=== PATIENT | female | born 1955 | race African-American/Black ===

== ENCOUNTER 2017-01-03 13:23 | Emergency (ER) | payer MEDICAID ==
[~2017-01-03] VITALS: Ht 144.8 cm; Wt 55.3 kg
[2017-01-03 13:51] LABS: Basophils # (auto) 0.1 uL; Basophils % (auto) 0.8 % (0.0-2.0); CONDITION Y; Eosinophils # (auto) 0.3 uL; Eosinophils % (auto) 5.1 % (0.0-7.0); Hematocrit 43.3 % (36.0-46.0); Hemoglobin 14.4 g/dL (12.2-16.2); Lymphocytes # (auto) 2.4 uL; Lymphocytes % (auto) 37.3 % (10.0-50.0); Mean Corpuscular Hemoglobin 29.9 pg (28.0-32.0); Mean Corpuscular Hgb Conc. 33.3 g/dL (32.0-36.0); Mean Corpuscular Volume 89.9 fL (80.0-100.0); Mean Platelet Volume 7.3 fL (7.4-10.4); Monocytes # (auto) 0.5 uL; Neutrophils # (auto) 3.1 uL; Neutrophils % (auto) 48.8 % (37.0-80.0); Platelet Count (auto) 320 10^3/uL (140-450); Red Cell Distribution Width 14.1 % (11.6-16.0); White Blood Cell 6.4 10^3/uL (4.4-10.8)
[2017-01-03 13:56] LABS: Urine Bilirubin Negative (Negative); Urine Blood Negative /uL (Negative); Urine Color Yellow (Yellow); Urine Mucus FEW (None Seen); Urine Nitrite Negative (Negative); Urine RBC 6 /hpf (0 - 4); Urine Squamous Epithelial Cell MOD /hpf (<5); Urine Urobilinogen Normal (Negative); Urine pH 5.5 (5.0-8.0)
[2017-01-03 13:59] LABS: Urine Glucose 4+ mg/dL (Normal); Urine Ketone 1+ (Negative)
[2017-01-03 14:19] LABS: Albumin 4.1 g/dL (3.4-5.0); Alkaline Phosphatase 79 U/L (45-117); Amylase 64 U/L (25-115); Anion Gap 13 (5-15); Aspartate Aminotransferase 21 U/L (15-37); BUN/Creatinine Ratio 16.8; Bilirubin, Total 0.3 mg/dL (0.2-1.0); Blood Urea Nitrogen 16 mg/dL (7-18); Calcium 9.5 mg/dL (8.5-10.1); Carbon Dioxide 25 mmol/L (21-32); Chloride 97 mmol/L (98-107); GFR African American 77 mL/min; GFR Non-African American 64 mL/min; Glucose 166 mg/dL (74-106); Potassium 3.9 mmol/L (3.5-5.1); Sodium 135 mmol/L (136-145); Total Protein 8.5 g/dL (6.4-8.2)
[2017-01-03] MEDS ORDERED: PANTOPRAZOLE SODIUM 40 MG/10 ML VIAL IV STA (16:20)
[2017-01-03] MEDS ORDERED: SODIUM CHLORIDE 0.9% 500 ML IVB ONE (16:20)
[2017-01-03] MEDS ORDERED: ONDANSETRON HCL 4 MG/2 ML VIAL IV ONE (16:30)
[2017-01-03] MEDS ORDERED: MORPHINE SULF INJ 2 MG/ML SYRINGE 1ML IV PRN (16:30)
[2017-01-03 19:26] VITALS: BP 158/85
== END 2017-01-03 19:42 | disposition left against medical advice (07) ==
LOC: ER 13:27
DX: N39.0 Urinary tract infection, site not specified (principal); E11.9 Type 2 diabetes mellitus without complications; I10 Essential (primary) hypertension; Z88.0 Allergy status to penicillin; Z88.6 Allergy status to analgesic agent; Z98.51 Tubal ligation status
CPT/HCPCS: 36415; 76705; 80053; 81001; 82150; 83690; 84484; 85025; 93005; 94761; 96361; 96374; 96375; 99285; C9113; J2270; J2405; J7040

== ENCOUNTER 2017-01-16 17:03 | Emergency (ER) | payer MEDICAID ==
[~2017-01-16] VITALS: Ht 144.8 cm; Wt 54.9 kg
[2017-01-16 18:53] LABS: Basophils # (auto) 0 uL; Basophils % (auto) 0.2 % (0.0-2.0); CONDITION Y; Eosinophils # (auto) 0.4 uL; Eosinophils % (auto) 4.9 % (0.0-7.0); Hematocrit 41.8 % (36.0-46.0); Hemoglobin 13.7 g/dL (12.2-16.2); Lymphocytes # (auto) 2.7 uL; Lymphocytes % (auto) 32.1 % (10.0-50.0); Mean Corpuscular Hemoglobin 29.7 pg (28.0-32.0); Mean Corpuscular Hgb Conc. 32.7 g/dL (32.0-36.0); Mean Corpuscular Volume 90.8 fL (80.0-100.0); Mean Platelet Volume 7.6 fL (7.4-10.4); Monocytes # (auto) 0.6 uL; Monocytes % (auto) 7.3 % (0.0-12.0); Neutrophils # (auto) 4.7 uL; Neutrophils % (auto) 55.5 % (37.0-80.0); Platelet Count (auto) 351 10^3/uL (140-450); Red Cell Distribution Width 13.6 % (11.6-16.0); White Blood Cell 8.5 10^3/uL (4.4-10.8)
[2017-01-16 18:56] LABS: Urine Bilirubin Negative (Negative); Urine Blood Negative /uL (Negative); Urine Color Yellow (Yellow); Urine Ketone Negative (Negative); Urine Mucus FEW (None Seen); Urine Nitrite Negative (Negative); Urine RBC <1 /hpf (0 - 4); Urine Squamous Epithelial Cell FEW /hpf (<5); Urine Urobilinogen Normal (Negative); Urine pH 5.5 (5.0-8.0)
[2017-01-16 18:57] LABS: Urine Glucose 4+ mg/dL (Normal)
[2017-01-16 19:41] LABS: Albumin 3.9 g/dL (3.4-5.0); Alkaline Phosphatase 81 U/L (45-117); Anion Gap 13 (5-15); Aspartate Aminotransferase 11 U/L (15-37); BUN/Creatinine Ratio 20.8; Bilirubin, Total 0.3 mg/dL (0.2-1.0); Blood Urea Nitrogen 20 mg/dL (7-18); Calcium 10.1 mg/dL (8.5-10.1); Carbon Dioxide 26 mmol/L (21-32); Chloride 106 mmol/L (98-107); GFR African American 76 mL/min; GFR Non-African American 63 mL/min; Glucose 83 mg/dL (74-106); Potassium 4.8 mmol/L (3.5-5.1); Sodium 145 mmol/L (136-145)
[2017-01-17] MEDS ORDERED: SODIUM CHLORIDE 0.9% 1,000 ML IV ONE (03:15)
[2017-01-17] MEDS ORDERED: ONDANSETRON HCL 4 MG/2 ML VIAL IV ONE (03:15)
[2017-01-17] MEDS ORDERED: HYDROmorphone HCL 2 MG/ML VL IV ONE (03:15)
[2017-01-17 06:56] VITALS: BP 137/80
== END 2017-01-17 06:59 | disposition home or self-care (01) ==
LOC: ER 17:10
DX: K57.90 Diverticulosis of intestine, part unspecified, without perforation or abscess without bleeding (principal); K59.00 Constipation, unspecified; E11.9 Type 2 diabetes mellitus without complications; E78.5 Hyperlipidemia, unspecified; I10 Essential (primary) hypertension; Z98.51 Tubal ligation status; Z88.0 Allergy status to penicillin; Z88.6 Allergy status to analgesic agent
CPT/HCPCS: 36415; 74176; 76705; 80053; 81001; 84484; 85025; 93005; 96361; 96374; 96375; 99285; J1170; J2405; J7030

== ENCOUNTER 2022-07-31 16:01 | Emergency (ER) | payer MEDICARE, MEDICAID ==
[~2022-07-31] VITALS: Ht 149.9 cm; Wt 62.8 kg
[2022-07-31 17:00] LABS: Basophils # (auto) 0 10 ^3/uL (0-0.2); Basophils % (auto) 0.5 % (0.0-2.0); Eosinophils # (auto) 0.3 10 ^3/uL (0-0.8); Eosinophils % (auto) 5.5 % (0.0-7.0); Hematocrit 37.9 % (36.0-46.0); Hemoglobin 12.4 g/dL (12.2-16.2); Lymphocytes # (auto) 1.9 10 ^3/uL (0.4-5.4); Lymphocytes % (auto) 35.3 % (10.0-50.0); Mean Corpuscular Hemoglobin 29.3 pg (28.0-32.0); Mean Corpuscular Hgb Conc. 32.6 g/dL (32.0-36.0); Monocytes # (auto) 0.5 10 ^3/uL (0-1.3); Monocytes % (auto) 9.7 % (0.0-12.0); Neutrophils # (auto) 2.6 10 ^3/uL (1.6-8.6); Nucleated Red Blood Cells % 0.2 %; Red Blood Cells 4.22 10^6/uL (4.0-5.20); Red Cell Distribution Width 13.9 % (11.8-14.3); White Blood Cell 5.3 10^3/uL (4.4-10.8)
[2022-07-31 17:24] LABS: Albumin 3.6 g/dL (3.4-5.0); BUN/Creatinine Ratio 23.9; Bilirubin, Total 0.4 mg/dL (0.2-1.0); Calcium 9.2 mg/dL (8.5-10.1); Total Protein 7.2 g/dL (6.4-8.2)
[2022-07-31 19:07] VITALS: BP 112/63
== END 2022-07-31 19:09 | disposition home or self-care (01) ==
LOC: ER 16:01
DX: E11.65 Type 2 diabetes mellitus with hyperglycemia (principal); R63.1 Polydipsia; R35.89 Other polyuria; E78.5 Hyperlipidemia, unspecified; I10 Essential (primary) hypertension; Z88.0 Allergy status to penicillin; Z88.6 Allergy status to analgesic agent
CPT/HCPCS: 36415; 80053; 82962; 85025; 93005

== ENCOUNTER 2025-04-30 21:44 | Inpatient (IN) | payer MEDICAID, MEDICARE, OTHER ==
[~2025-04-30] VITALS: Ht 144.8 cm; Wt 57.7 kg
[2025-04-30] MEDS: SODIUM CHLORIDE 0.9% 1,000 ML IV ONE (00:30)
--- NOTE | 2025-04-30 22:20 | ED.PDOC ---
History of present illness HPI Comments HPI: 69-year-old female who came to ER via EMS for hyperglycemia. She does have history of hypertension and diabetes, with poor compliance to medications. The past 2 days, she was noted to be restless, shaking uncontrollably, jittery, and noted that her blood sugar levels were high. Upon arrival of EMS, blood sugar was 282, in his saturating of 90% on room air. Patient was placed a 2 L nasal cannula and transferred to the ER Past Medical History: Hypertension, diabetes Past Surgical History: Denies Social History: Denies Medications: Allergies: ANDRES: HPI: Poor Historian. Past Medical History: Past Surgical History: REVIEW OF SYSTEMS: CONSTITUTIONAL: Denies acute: fever, diaphoresis, chills, generalized weakness. HEAD: Denies acute: headache, photophobia Eyes: Denies acute: Double vision, vision loss, eye pain, eye discharge. EARS: Denies acute: tinnitus, hearing loss, ear discharge, ear pain, THROAT: Denies acute: sore throat, swelling, difficulty swallowing , pain with swallowing, change in voice. NECK: Denies acute: neck pain, neck swelling, stiff neck. HEART: Denies acute : chest pain, palpitations, LUNGS: Denies acute: SOB, wheezing, cough, hemoptysis ABDOMEN: Denies acute: abdominal pain, Nausea, Vomiting, diarrhea, melena , hematemesis, hematochezia SKIN: Denies acute: rash, redness, lesions, itchiness. EXTREMITIES: Denies acute: calf pain, numbness, tingling, weakness, denies pain in extremity. Denies acute: Low back pain. Neuro: Denies acute: focal neurological deficit, motor or sensory focal neurological deficit, tremors, seizure like activity, confusion, dizziness, change in mental status, loss of bowel or bladder function, cauda equina like symptoms. : Denies acute: dysuria, hematuria, flank pain, increase in urinary frequency. PSYCH: Denies acute: hallucination, suicidal ideation, homicidal ideation. FEMALE: Denies acute: abnormal vaginal bleeding, foul odor, unusual discharge. PHYSICAL EXAM: General: ----no----acute distress, awake and alert. Head: normocephalic, atraumatic. No raccoon's eyes, no valdez sign. Neck: supple, trachea is midline, no swelling. Throat: Normal phonation. Eyes:, no erythema, no purulent discharge, no proptosis, no icterus. Heart: regular rate, regular rhythm, no significant murmur appreciated. Lungs: no apparent respiratory distress, Able to speak in full sentences. No wheezing, no rhonchi, no crackles. No stridors Clear to auscultation bilaterally. Abdomen: non tender to palpation, non distended, soft, no guarding, no rebound, + bowel sounds. Neuro: Awake, Alert, oriented to name, self, situation, follows commands GCS=15. Speech is normal. Skin: no petechia, no purpura, no cyanosis, non-pale, not jaundice. Lower extremities: --no - Pitting edema no deformity, no focal swelling, no calf TTP. Makes eye contact. moves all four extremities. Face: no apparent facial droop. ED COURSE: DISCLAIMER: This medical document was created using an electronic medical record system with voice recognition software and computerized dictation system. Although this document has been carefully reviewed, there might still be some phonetic and typographical errors. Occasional wrong-word or "sound-alike" substitutions may have occurred due to the inherent limitations of voice recognition software. These areas are purely typographical due to imperfections of the software programs and do not reflect any compromise in the patient's medical care. Please read the chart carefully and recognize, using context, where these substitutions have occurred. Chief Complaint: Hyperglycemia Time Seen by MD: 22:19 Primary Care Provider: UNKNOWN History of present illness: Nurses Notes, Allergies Allergies: Coded Allergies: Gabapentin (Verified Allergy, Unknown, 05/02/25) pt's son states that pt couldn't take it, pt had reaction before Penicillins (Verified Allergy, Unknown, 01/03/17) Ibuprofen (Verified Adverse Reaction, Intermediate, VOMITING, 01/03/17) Home Meds Active Scripts Losartan Potassium (Losartan Potassium) 25 Mg Tab, 1 TAB PO DAILY, #30 TAB 5 Refills Prov:CHAS CHERY MD 05/02/25 Nitrofurantoin Monohydrate Mac (Macrobid) 100 Mg Cap, 100 MG PO BID for 5 Days, #10 CAP Prov:CHAS CHERY MD 05/02/25 Information Source: Patient Mode of Arrival: EMS Past Medical History PAST MEDICAL HISTORY: DM, High Lipids, HTN Surgical History: Tubal Ligation Social History Smoker: Non-Smoker Alcohol: Occasionally Drugs: Denies Drug Use Lives In: Home Was a procedure done? Was a procedure done?: No Differential Diagnosis (DM) Differential Diagnosis: Dehydration, Diabetic Coma, DKA, Electrolyte Abnormality, Hyperglycemia, Hyperosmolar State, Hypoglycemia, UTI X-Ray, Labs, Meds, VS Vital Signs Date Time Temp Pulse Resp B/P (MAP) Pulse Ox O2 Delivery O2 Flow Rate FiO2 05/01/25 03:06 97 05/01/25 03:05 89 05/01/25 02:07 88 18 115/63 (80) 94 04/30/25 22:20 Nasal Cannula* 2 28 04/30/25 22:20 98.2 107 18 101/66 (78) 92 98.2 04/30/25 21:47 98.9 110 16 154/81 97 98.9 Lab Test 04/30/25 23:29 04/30/25 23:25 04/30/25 22:16 Range/Units Troponin I High Sensitivity 7 5 </=34 ng/L Urine Color Light-orange Yellow Urine Clarity Ex.turbid Clear Urine pH 5.0 5.0-9.0 Urine Specific [place] 1.023 1.001-1.035 Urine Protein 1+ H Negative Urine Ketones Negative Negative Urine Blood 1+ H Negative /uL Urine Nitrite Negative Negative Urine Bilirubin 1+ H Negative Urine Urobilinogen 2 H Negative mg/dL Urine Leukocyte Esterase 3+ Negative /uL Urine RBC 10 0 - 4 /hpf Urine Microscopic WBC 18 H 0-5 /HPF Urine Squamous Epithelial Cells Mod <5 /hpf Urine Bacteria None seen None Seen /hpf Urine Mucus Few None Seen Urine Glucose 4+ H Normal mg/dL Urine Opiates Screen Neg NEGATIVE Urine Fentanyl Screen Neg NEGATIVE Urine Barbiturates Screen Neg NEGATIVE Urine Phencyclidine Screen Neg NEGATIVE Urine Amphetamines Screen Neg NEGATIVE Urine Benzodiazepines Screen Neg NEGATIVE Urine Cocaine Screen Neg NEGATIVE Urine Cannabinoids Screen Neg NEGATIVE White Blood Count 8.6 4.4-10.8 10^3/uL Red Blood Count 4.50 4.0-5.20 10^6/uL Hemoglobin 13.4 12.2-16.2 g/dL Hematocrit 40.4 36.0-46.0 % Mean Corpuscular Volume 89.7 80.0-100.0 fL Mean Corpuscular Hemoglobin 29.8 28.0-32.0 pg Mean Corpuscular Hemoglobin Concent 33.3 32.0-36.0 g/dL Red Cell Distribution Width 15.9 H 11.8-14.3 % Platelet Count 319 140-450 10^3/uL Mean Platelet Volume 7.4 6.9-10.8 fL Neutrophils (%) (Auto) 61.7 37.0-80.0 % Lymphocytes (%) (Auto) 25.7 10.0-50.0 % Monocytes (%) (Auto) 7.9 0.0-12.0 % Eosinophils (%) (Auto) 3.9 0.0-7.0 % Basophils (%) (Auto) 0.8 0.0-2.0 % Neutrophils # (Auto) 5.3 1.6-8.6 10 ^3/uL Lymphocytes # (Auto) 2.2 0.4-5.4 10 ^3/uL Monocytes # (Auto) 0.7 0-1.3 10 ^3/uL Eosinophils # (Auto) 0.3 0-0.8 10 ^3/uL Basophils # (Auto) 0.1 0-0.2 10 ^3/uL Nucleated Red Blood Cells 0.1 % Sodium Level 143 136-145 mmol/L Potassium Level 3.7 3.5-5.1 mmol/L Chloride Level 104 98-107 mmol/L Carbon Dioxide Level 23 20-31 mmol/L Anion Gap 16 H 5-15 Blood Urea Nitrogen 40 H 9-23 mg/dL Creatinine 2.93 H 0.550-1.02 mg/dL Glomerular Filtration Rate Calc 17 >90 mL/min BUN/Creatinine Ratio 13.7 10.0-20.0 Serum Glucose 282 H 74-106 mg/dL Lactic Acid Level 1.8 0.4-2.0 mmol/L Calcium Level 9.7 8.7-10.4 mg/dL Magnesium Level 2.0 1.6-2.6 mg/dL Total Bilirubin 0.3 0.2-1.0 mg/dL Aspartate Amino Transferase (AST) 41 H 13-40 U/L Alanine Aminotransferase (ALT) 22 7-40 U/L Alkaline Phosphatase 126 H 46-116 U/L Total Protein 7.3 5.7-8.2 g/dL Albumin 4.2 3.2-4.8 g/dL Microbiology Date/Time Source Procedure Growth Status 04/30/25 23:25 Voided Urine Urine Culture - Preliminary Resulted [facility] [address] [facility] [id number] Ph: [phone] DIAGNOSTIC IMAGING Diagnostic Imaging Report : [id number] Signed PATIENT: UZMA CAMPOS ACCT: [id number] UNIT: [id number] : 1955 LOC: ER ROOM / BED: / AGE / SEX: 69 / F ADM STATUS: REG ER SERVICE 07 ORDERING PHYSICIAN: LISA YOUNG DO PROCEDURE(s): CXRP - CHEST PORTABLE REASON: restless ORDER NUMBER(s): [id number], ACCESSION NUMBER(s): [id number] INDICATION: restless TECHNIQUE: Frontal view of the chest. COMPARISON: XR CHEST 1 VIEW on DOS: 03/15/25, XR CHEST 1 VIEW on DOS: 03/14/25 FINDINGS/IMPRESSION: Elevated right hemidiaphragm. Mild enlargement of the cardiomediastinal silhouette, possibly accentuated by technique. No pleural effusion or pneumothorax. No acute osseous abnormality. ATED BY: AJ STEPHENSON MD DICTATED DATE/TIME: 04/30/252245 SIGNED BY: AJ STEPHENSON MD SIGNED DATE/TIME: 04/30/252245 CC: Time of 1ST Reevaluation: 22:18 Reevaluation 1ST: Unchanged Patient Education/Counseling: Diagnosis, Treatment Family Education/Counseling: No Family Present Comments MDM: patient presented with the above HPI.--hyperglycemia----workup was initiated. patient was found with the above mentioned diagnosis. the following medications were ordered: please refer to order lists of meds and tests obtained by myself Dr. Young. Patient ED course and VS have been stabilized. Patient has been reassessed in the ED and remained in a stable condition. Pertinent incidental findings were discussed with the patient and/or family. Patient/family voices understanding and is agreeable with plan. Patient has been observed in the ED adequate length of time to insure improvement/stability. Escalation of care considered: Consideration of escalation to observation or admission Patient was given Rocephin and fluids. Patient was ADMITTED to the medicine team for further evaluation and treatment of their presentation. All the reports of any imaging studies that were ordered by myself were reviewed by myself. SEPSIS Sepsis Screen Date sepsis recognized/suspect: Apr 30, 2025 Time Sepsis recognized/suspect: 2147 Recent Procedure: No On Antibiotic Therapy: No Respiratory Rate >20: No Heart Rate >90: Yes Temp<36 C (96.8 F) or >38.3 C: No SBP <90 or MAP <65 mmHG: No New Acute Mental Status Change: No Is the patient on CPAP, BIPAP,: No Physician Orders [employer] (04/30/25 ) Chest Portable (04/30/25 22:08) Electrocardigram (04/30/25 22:08) Urine Bacterial Culture (05/01/25 01:49) Ceftriaxone 1gm/50ml (Rocephin) (05/01/25 21:00) *[facility] (05/01/25 01:49) Consistent Carb([facility])Diabetes (05/01/25 Breakfast) Dextrose 50% Syringe (05/01/25 02:00) Allergies (05/01/25 01:49) Code Status (05/01/25 01:49) Sodium Chloride Lock (Saline Lock Ns) (05/01/25 06:00) Oxygen Per Hour (05/01/25 01:49) Hydrocodone-Acet 5/325mg Tab ([place] 5/32 (05/01/25 02:00) Ondansetron Hcl (Zofran) (05/01/25 02:00) Docusate Sodium Capsule (Colace Capsule) (05/01/25 02:00) Condition: Serious (05/01/25 01:49) Acetaminophen Tablet (Tylenol Tablet) (05/01/25 02:00) Bedrest With Bathroom Privileg (05/01/25 01:49) Maintain Bed Rest (05/01/25 01:49) Sequential Compression Device (05/01/25 ) Atorvastatin (Lipitor) (05/01/25 22:00) Aspirin Chewable Tablet (05/01/25 10:00) Clonidine Hcl Tablet (Catapres Tablet) (05/01/25 02:00) Vital Signs Date Time Temp Pulse Resp B/P (MAP) Pulse Ox O2 Delivery O2 Flow Rate FiO2 05/01/25 03:06 97 05/01/25 03:05 89 05/01/25 02:07 88 18 115/63 (80) 94 04/30/25 22:20 Nasal Cannula* 2 28 04/30/25 22:20 98.2 107 18 101/66 (78) 92 98.2 04/30/25 21:47 98.9 110 16 154/81 97 98.9 Laboratory Tests Test 04/30/25 22:16 Lactic Acid Level 1.8 mmol/L (0.4-2.0) White Blood Count 8.6 10^3/uL (4.4-10.8) Departure 1 Departure Time of Disposition: 00:00 Impression: Primary Impression: Acute renal insufficiency Additional Impressions: UTI (urinary tract infection) Hyperglycemia Disposition: ADMITTED INPATIENT Admit to: Tele Condition: Guarded e-Prescriptions Losartan Potassium (Losartan Potassium) 25 Mg Tab 1 TAB PO DAILY, #30 TAB 5 Refills Prov: CHAS CHERY MD 05/02/25 Nitrofurantoin Monohydrate Mac (Macrobid) 100 Mg Cap 100 MG PO BID for 5 Days, #10 CAP Prov: CHAS CHERY MD 05/02/25 Discharged With: Self Critical Care Note Critical Care Time?: Yes (45 min-critical care time only) I personally scribed for LISA YOUNG DO ([email or web address]) on 04/30/25 at 22:20. Electronically submitted by Rodney Covington ([facility] I personally scribed for LISA YOUNG DO ([email or web address]) on 04/30/25 at 23:29. Electronically submitted by Rodney Covington ([facility]). I personally scribed for LISA YOUNG DO ([email or web address]) on 05/01/25 at 00:48. Electronically submitted by Rodney Covington ([facility]). LISA YOUNG DO Apr 30, 2025 22:20
[2025-04-30 22:31] LABS: Hematocrit 40.4 % (36.0-46.0); Hemoglobin 13.4 g/dL (12.2-16.2); Mean Corpuscular Hemoglobin 29.8 pg (28.0-32.0); Mean Corpuscular Volume 89.7 fL (80.0-100.0); Nucleated Red Blood Cells % 0.1 %
--- NOTE | 2025-04-30 22:49 | DVH ---
INDICATION: restless TECHNIQUE: Frontal view of the chest. COMPARISON: XR CHEST 1 VIEW on DOS: 03/15/25, XR CHEST 1 VIEW on DOS: 03/14/25 FINDINGS/IMPRESSION: Elevated right hemidiaphragm. Mild enlargement of the cardiomediastinal silhouette, possibly accentuated by technique. No pleural effusion or pneumothorax. No acute osseous abnormality.
[2025-04-30 22:50] LABS: Alanine Aminotransferase 22 U/L (7-40); Albumin 4.2 g/dL (3.2-4.8); Anion Gap 16 (5-15); BUN/Creatinine Ratio 13.7 (10.0-20.0); Bilirubin, Total 0.3 mg/dL (0.2-1.0); Calcium 9.7 mg/dL (8.7-10.4); Carbon Dioxide 23 mmol/L (20-31); Chloride 104 mmol/L (98-107); Magnesium 2.0 mg/dL (1.6-2.6); Potassium 3.7 mmol/L (3.5-5.1); Sodium 143 mmol/L (136-145); Total Protein 7.3 g/dL (5.7-8.2)
[2025-04-30 22:55] LABS: Alkaline Phosphatase 126 U/L (46-116); Blood Urea Nitrogen 40 mg/dL (9-23); Glucose 282 mg/dL (74-106)
[2025-04-30 23:49] LABS: Urine Protein, UAD 1+ (Negative)
[2025-05-01 00:01] LABS: Amphetamine Screen, Urine Neg (NEGATIVE); Barbiturate Scree,Urine Neg (NEGATIVE); Benzodiazephine Screen, Urine Neg (NEGATIVE); Cannabinoid Screen, Urine Neg (NEGATIVE); Cocaine Screen, Urine Neg (NEGATIVE); Opiate Scree,Urine Neg (NEGATIVE); Phencyclidine Screen, Urine Neg (NEGATIVE)
[2025-05-01] MEDS ORDERED: ONDANSETRON HCL 4 MG/2 ML VIAL IV PRN (02:00)
[2025-05-01] MEDS ORDERED: DEXTROSE (50%) 50ML SYRG IV PRN (02:00)
[2025-05-01] MEDS ORDERED: DOCUSATE SOD 100 MG CAP PO PRN (02:00)
[2025-05-01] MEDS ORDERED: ACETAMINOPHEN 325 MG TAB PO PRN (02:00)
[2025-05-01] MEDS ORDERED: NITROGLYCERIN 0.4 MG SL TAB SL PRN (03:30)
[2025-05-01] MEDS ORDERED: MORPHINE SULFATE INJ 2 MG/ml SYRG IV PRN (03:30)
--- NOTE | 2025-05-01 03:31 | DVHHP2 ---
History of Present Illness Reason for Visit: Diabetes mellitus with hyperglycemia History of Present Illness The patient is a 69-year-old female with past medical history of DM, hyperlipidemia, and hypertension who presented to [facility] with complaint of elevated blood sugar. Patient reports she has been restless for the past 2 days, noted to have elevated blood sugar, shaking uncontrollably, associated with shortness of breaths, getting worse that prompted this visit. Patient was seen and evaluated in the ED, laboratory data shows WBC 8.6, platelets 319, sodium 143, potassium 3.7, BUN 40, creatinine 2.93, glucose 282, calcium 9.7, troponin 7, alkaline phos 126, AST 41, ALT 22, blood pressure 102/66, heart rate 106, temperature 98.2 F, O2 saturation 92% on oxygen. Chest x-ray show no pleural effusion, pneumothorax, acute osseous abnormality. Please see medication orders section in the computer. On my assessment, daughter at bedside, patient denies chest pain, no headache, dizziness, diaphoresis, currently on oxygen, no diarrhea, nausea, vomiting, fever, no chills. Patient was admitted for further evaluation and medical management. Past Medical History DM, High Lipids, HTN Past Surgical History Tubal Ligation Family History Reviewed, noncontributory to the management of this case. Past Social History The patient lives at home, denies smoking, alcohol or illicit drugs abuse. Review of Systems Constitutional: Yes: Weakness; No: Fever, Chills, Sweats, Malaise, Other Eyes: No: Pain, Vision change, Conjunctivae inflammation, Eyelid inflammation, Other, Redness ENT: No: Ear pain, Ear discharge, Nose pain, Nose discharge, Nose congestion, Mouth pain, Mouth swelling, Throat pain, Throat swelling, Other Respiratory: Shortness of breath; No: Cough, Dry, SOB with excertion, Wheezing, Hemoptysis, Pleuritic Pain, Sputum, Wheezing, Other Cardiovascular: No: Chest Pain, Palpitations, Orthopnea, Paroxysmal Noc. Dyspnea, Edema, Lt Headedness, Other Gastrointestinal: No: Nausea, Vomiting, Abdominal Pain, Diarrhea, Constipation, Melena, Hematochezia, Other Genitourinary: No Dysuria, No Frequency, No Incontinence, No Hematuria, No Retention, No Other Musculoskeletal: No: other, neck pain, shoulder pain, arm pain, back pain, hand pain, leg pain, foot pain Skin: No: Rash, Lesions, Jaundice, Bruising, Other Neurological: No: Weakness, Numbness, Incoordination, Change in speech, Confusion, Seizures, Other Allergies: Coded Allergies: Penicillins (Verified Allergy, Unknown, 01/03/17) Ibuprofen (Verified Adverse Reaction, Intermediate, VOMITING, 01/03/17) Medications Current Medications Medications Dose Ordered Sig/Nathan Route Start Time Stop Time Status Last Admin Dose Admin Ceftriaxone Sodium 50 ml @ 100 mls/hr DAILY@2100 IV 05/01/25 21:00 Diagnostic Test (Pha) 1 strip IQ4HR 05/01/25 04:00 Insulin Human Regular IQ4HR SC 05/01/25 04:00 Dextrose 50 ml UD PRN IV 05/01/25 02:00 Sodium Chloride 10 ml Q8HR IV 05/01/25 06:00 Acetaminophen/ Hydrocodone Bitart 1 tab Q4HP PRN PO 05/01/25 02:00 Ondansetron HCl 4 mg Q4HP PRN IV 05/01/25 02:00 Docusate Sodium 100 mg BIDPRN PRN PO 05/01/25 02:00 Acetaminophen 650 mg Q6HP PRN PO 05/01/25 02:00 Atorvastatin Calcium 20 mg HS PO 05/01/25 22:00 Aspirin 81 mg DAILY PO 05/01/25 10:00 Clonidine HCl 0.1 mg Q4HP PRN PO 05/01/25 02:00 Exam Vital Signs Vital Signs Date Time Temp Pulse Resp B/P (MAP) Pulse Ox O2 Delivery O2 Flow Rate FiO2 05/01/25 03:06 97 05/01/25 02:07 88 18 115/63 (80) 04/30/25 22:20 Nasal Cannula* 2 28 04/30/25 22:20 98.2 98.2 General Appearance: Alert, Oriented X3, Cooperative, No acute distress HEENT: Atraumatic, PERRLA, EOMI, Mucous membr. moist/pink Respiratory: Normal air movement Cardiovascular: Regular rate, Normal S1, Normal S2, No murmurs Abdominal: Normal bowel sounds, Soft, No tenderness, No hepatospenomegaly, No masses Extremities: No clubbing, No cyanosis, No edema, Normal pulses, No tenderness/swelling Skin: No rashes, No significant lesion Neuro: Normal speech, Normal tone, Sensation intact, Cranial nerves 3-12 NL, Reflexes 2+, Other (Generalized weakness) Psych/Mental Status: Mental status NL Labs/Xrays Labs Test 04/30/25 23:29 04/30/25 23:25 04/30/25 22:16 Range/Units Troponin I High Sensitivity 7 </=34 ng/L Urine Color Light-orange Yellow Urine Clarity Ex.turbid Clear Urine pH 5.0 5.0-9.0 Urine Specific [place] 1.023 1.001-1.035 Urine Protein 1+ H Negative Urine Ketones Negative Negative Urine Blood 1+ H Negative /uL Urine Nitrite Negative Negative Urine Bilirubin 1+ H Negative Urine Urobilinogen 2 H Negative mg/dL Urine Leukocyte Esterase 3+ Negative /uL Urine RBC 10 0 - 4 /hpf Urine Microscopic WBC 18 H 0-5 /HPF Urine Squamous Epithelial Cells Mod <5 /hpf Urine Bacteria None seen None Seen /hpf Urine Mucus Few None Seen Urine Glucose 4+ H Normal mg/dL Urine Opiates Screen Neg NEGATIVE Urine Fentanyl Screen Neg NEGATIVE Urine Barbiturates Screen Neg NEGATIVE Urine Phencyclidine Screen Neg NEGATIVE Urine Amphetamines Screen Neg NEGATIVE Urine Benzodiazepines Screen Neg NEGATIVE Urine Cocaine Screen Neg NEGATIVE Urine Cannabinoids Screen Neg NEGATIVE White Blood Count 8.6 4.4-10.8 10^3/uL Red Blood Count 4.50 4.0-5.20 10^6/uL Hemoglobin 13.4 12.2-16.2 g/dL Hematocrit 40.4 36.0-46.0 % Mean Corpuscular Volume 89.7 80.0-100.0 fL Mean Corpuscular Hemoglobin 29.8 28.0-32.0 pg Mean Corpuscular Hemoglobin Concent 33.3 32.0-36.0 g/dL Red Cell Distribution Width 15.9 H 11.8-14.3 % Platelet Count 319 140-450 10^3/uL Mean Platelet Volume 7.4 6.9-10.8 fL Neutrophils (%) (Auto) 61.7 37.0-80.0 % Lymphocytes (%) (Auto) 25.7 10.0-50.0 % Monocytes (%) (Auto) 7.9 0.0-12.0 % Eosinophils (%) (Auto) 3.9 0.0-7.0 % Basophils (%) (Auto) 0.8 0.0-2.0 % Neutrophils # (Auto) 5.3 1.6-8.6 10 ^3/uL Lymphocytes # (Auto) 2.2 0.4-5.4 10 ^3/uL Monocytes # (Auto) 0.7 0-1.3 10 ^3/uL Eosinophils # (Auto) 0.3 0-0.8 10 ^3/uL Basophils # (Auto) 0.1 0-0.2 10 ^3/uL Nucleated Red Blood Cells 0.1 % Sodium Level 143 136-145 mmol/L Potassium Level 3.7 3.5-5.1 mmol/L Chloride Level 104 98-107 mmol/L Carbon Dioxide Level 23 20-31 mmol/L Anion Gap 16 H 5-15 Blood Urea Nitrogen 40 H 9-23 mg/dL Creatinine 2.93 H 0.550-1.02 mg/dL Glomerular Filtration Rate Calc 17 >90 mL/min BUN/Creatinine Ratio 13.7 10.0-20.0 Serum Glucose 282 H 74-106 mg/dL Lactic Acid Level 1.8 0.4-2.0 mmol/L Calcium Level 9.7 8.7-10.4 mg/dL Magnesium Level 2.0 1.6-2.6 mg/dL Total Bilirubin 0.3 0.2-1.0 mg/dL Aspartate Amino Transferase (AST) 41 H 13-40 U/L Alanine Aminotransferase (ALT) 22 7-40 U/L Alkaline Phosphatase 126 H 46-116 U/L Total Protein 7.3 5.7-8.2 g/dL Albumin 4.2 3.2-4.8 g/dL PATIENT: UZMA CAMPOS ACCT: [id number] UNIT: [id number] : 1955 LOC: ER ROOM / BED: / AGE / SEX: 69 / F ADM STATUS: REG ER SERVICE 07 ORDERING PHYSICIAN: LISA YOUNG DO PROCEDURE(s): CXRP - CHEST PORTABLE REASON: restless ORDER NUMBER(s): [id number], ACCESSION NUMBER(s): [id number] INDICATION: restless TECHNIQUE: Frontal view of the chest. COMPARISON: XR CHEST 1 VIEW on DOS: 03/15/25, XR CHEST 1 VIEW on DOS: 03/14/25 FINDINGS/IMPRESSION: Elevated right hemidiaphragm. Mild enlargement of the cardiomediastinal silhouette, possibly accentuated by technique. No pleural effusion or pneumothorax. No acute osseous abnormality. SEPSIS Sepsis Screen Date sepsis recognized/suspect: Apr 30, 2025 Time Sepsis recognized/suspect: 2219 Recent Procedure: No On Antibiotic Therapy: No Respiratory Rate >20: No Heart Rate >90: No Temp<36 C (96.8 F) or >38.3 C: No SBP <90 or MAP <65 mmHG: No New Acute Mental Status Change: No Is the patient on CPAP, BIPAP,: No Physician Orders Certified Control Systems Technician (04/30/25 ) Chest Portable (04/30/25 22:08) Electrocardigram (04/30/25 22:08) Complete Blood Count (05/01/25 04:00) Comprehensive Metabolic Panel (05/01/25 04:00) Urine Bacterial Culture (05/01/25 01:49) Ceftriaxone 1gm/50ml (Rocephin) (05/01/25 21:00) *[facility] (05/01/25 01:49) [facility]Diabetes (05/01/25 Breakfast) Glucose Blood (Accu-Chek Comfort Curve T (05/01/25 04:00) Insulin R (Human) (Insulin R) (05/01/25 04:00) Dextrose 50% Syringe (05/01/25 02:00) Allergies (05/01/25 01:49) Code Status (05/01/25 01:49) Sodium Chloride Lock (Saline Lock Ns) (05/01/25 06:00) Oxygen Per Hour (05/01/25 01:49) Hydrocodone-Acet 5/325mg Tab ([place] 5/32 (05/01/25 02:00) Ondansetron Hcl (Zofran) (05/01/25 02:00) Docusate Sodium Capsule (Colace Capsule) (05/01/25 02:00) Complete Blood Count (05/02/25 04:00) Comprehensive Metabolic Panel (05/02/25 04:00) Condition: Serious (05/01/25 01:49) Acetaminophen Tablet (Tylenol Tablet) (05/01/25 02:00) Bedrest With Bathroom Privileg (05/01/25 01:49) Maintain Bed Rest (05/01/25 01:49) Sequential Compression Device (05/01/25 ) Atorvastatin (Lipitor) (05/01/25 22:00) Aspirin Chewable Tablet (05/01/25 10:00) Clonidine Hcl Tablet (Catapres Tablet) (05/01/25 02:00) Admit (05/01/25 03:28) Nitroglycerin Sublingual (Ntrostat Subli (05/01/25 03:30) Morphine Sulfate Injection (05/01/25 03:30) Stat Ekg For Chest Pain (05/01/25 03:28) Notify Of Changes From Base (05/01/25 03:28) Tender Labor For 24 Hours (05/01/25 03:28) Emergency Dysrhythmia Protocol (05/01/25 03:28) Rhythm Strips Once Every Shift (05/01/25 03:28) Oxygen By Nasal Cannula (05/01/25 03:28) Vital Signs Date Time Temp Pulse Resp B/P (MAP) Pulse Ox O2 Delivery O2 Flow Rate FiO2 05/01/25 03:06 97 05/01/25 03:05 89 05/01/25 02:07 88 18 115/63 (80) 94 04/30/25 22:20 Nasal Cannula* 2 28 04/30/25 22:20 98.2 107 18 101/66 (78) 92 98.2 04/30/25 21:47 98.9 110 16 154/81 97 98.9 Laboratory Tests Test 04/30/25 22:16 Lactic Acid Level 1.8 mmol/L (0.4-2.0) White Blood Count 8.6 10^3/uL (4.4-10.8) Medications Medications Dose Ordered Sig/Nathan Route Start Time Stop Time Status Last Admin Dose Admin Ceftriaxone Sodium 50 ml @ 100 mls/hr ONCE ONCE IV 05/01/25 01:15 05/01/25 01:44 DC 05/01/25 02:15 100 MLS/HR Sodium Chloride 1,000 ml @ 1,000 mls/hr Q1H ONCE IV 04/30/25 23:30 05/01/25 00:29 DC 04/30/25 00:30 1,000 MLS/HR Assessment/Plan Assessment/Plan Diabetes mellitus with hyperglycemia Urinary tract infection Acute on chronic renal failure Generalized weakness Plan 1. Admit to telemetry unit 2. Breathing treatment 3. Pain control management 4. IV antibiotic management 5. Management of fluids and electrolytes 6. Consultation for hospitalized/nephrology 7. Diagnostic test chest x-ray 8. DVT prophylaxis-on aspirin 9. Repeat labs CBC, CMP in a.m. 10. Home medication reviewed and reconciled 11. Continue with current medical management 12. Treatment plan discussed with patient/daughter and RN. Patient/daughter verbalized understanding. Plan discussed with: Patient, Daughter, Other (RN) My Orders Orders - BEBO CANDELARIO DNP Procedure Category Date Status Time Complete Blood Count LAB 05/01/25 Logged 04:00 Comprehensive LAB 05/01/25 Logged Metabolic Panel 04:00 Urine Bacterial BORA 05/01/25 Logged Culture 01:49 Ceftriaxone 1gm/50ml PHA 05/01/25 In Process (Rocephin) 21:00 *[facility] CONS 05/01/25 Transmitted -[place] 01:49 Consistent DIET 05/01/25 Transmitted Carb(Ccho)Diabetes Breakfast Glucose Blood PHA 05/01/25 In Process (Accu-Chek Comfort 04:00 Insulin R (Human) PHA 05/01/25 In Process (Insulin R) 04:00 Dextrose 50% Syringe PHA 05/01/25 In Process 02:00 Allergies ROBB 05/01/25 In Process 01:49 Code Status CODE 05/01/25 Transmitted 01:49 Sodium Chloride Lock PHA 05/01/25 In Process (Saline Lock Ns) 06:00 Oxygen Per Hour RT 05/01/25 Transmitted 01:49 Hydrocodone-Acet PHA 05/01/25 In Process 5/325mg Tab ([place] 02:00 Ondansetron Hcl PHA 05/01/25 In Process (Zofran) 02:00 Docusate Sodium PHA 05/01/25 In Process Capsule (Colace 02:00 Complete Blood Count LAB 05/02/25 Verified 04:00 Comprehensive LAB 05/02/25 Verified Metabolic Panel 04:00 Condition: Serious ROBB 05/01/25 In Process 01:49 Acetaminophen Tablet PHA 05/01/25 In Process (Tylenol Tablet) 02:00 Bedrest With Bathroom ROBB 05/01/25 In Process Privileg 01:49 Maintain Bed Rest ROBB 05/01/25 In Process 01:49 Sequential ROBB 05/01/25 In Process Compression Device Atorvastatin (Lipitor) PHA 05/01/25 In Process 22:00 Aspirin Chewable PHA 05/01/25 In Process Tablet 10:00 Clonidine Hcl Tablet [facility] 05/01/25 In Process (Catapres Tablet) 02:00 Admit ADMIT 05/01/25 Verified 03:28 Nitroglycerin [facility] 05/01/25 Verified Sublingual (Ntrostat 03:30 Morphine Sulfate [facility] 05/01/25 Verified Injection 03:30 Stat Ekg For Chest [facility] 05/01/25 Verified Pain 03:28 Notify Md Of Changes [facility] 05/01/25 Verified From Base 03:28 Tender Labor For [facility] 05/01/25 Verified 24 Hours 03:28 Emergency Dysrhythmia [facility] 05/01/25 Verified Protocol 03:28 Rhythm Strips Once [facility] 05/01/25 Verified Every Shift 03:28 Oxygen By Nasal 05/01/25 Verified Cannula 03:28 Problem List: (1) Diabetes mellitus with hyperglycemia (2) Urinary tract infection (3) Acute on chronic renal failure (4) General weakness Date of Service: May 01, 2025 Billing Provider: BEBO CANDELARIO DNP Common Visit Codes: [id number] INP/OBS CARE (HIGH) BEBO CANDELARIO DNP May 01, 2025 03:30
[2025-05-01] MEDS: ACCU-CHEK COMFORT CURVE STRIP VI SCH ×2 (04:00→17:00)
[2025-05-01] MEDS: InsuLIN REG 1unit/0.01ml Soln (100units/ml) SC SCH ×2 (04:00→17:00)
[2025-05-01] MEDS: LORazepam 0.5 MG TAB PO PRN (04:26)
[2025-05-01] MEDS: SODIUM CHLOR 0.9% PF (SALINE LOCK) 10ML VIAL/SYR IV SCH (06:05)
[2025-05-01 09:00] VITALS: BP 124/101; PULSE 96; RESP 16; TEMP 98.7; O2SAT 96
[2025-05-01 10:33] LABS: Hematocrit 39.7 % (36.0-46.0); Hemoglobin 13.1 g/dL (12.2-16.2); Mean Corpuscular Hemoglobin 29.6 pg (28.0-32.0); Mean Corpuscular Volume 89.5 fL (80.0-100.0)
[2025-05-01 10:46] LABS: Alanine Aminotransferase 23 U/L (7-40); Albumin 3.9 g/dL (3.2-4.8); Anion Gap 12 (5-15); BUN/Creatinine Ratio 18.1 (10.0-20.0); Bilirubin, Total 0.5 mg/dL (0.2-1.0); Calcium 8.9 mg/dL (8.7-10.4); Carbon Dioxide 26 mmol/L (20-31); Chloride 105 mmol/L (98-107); Sodium 143 mmol/L (136-145); Total Protein 6.8 g/dL (5.7-8.2)
[2025-05-01 10:48] LABS: Alkaline Phosphatase 126 U/L (46-116); Blood Urea Nitrogen 29 mg/dL (9-23); Glucose 158 mg/dL (74-106); Potassium 3.0 mmol/L (3.5-5.1)
[2025-05-01 10:59] LABS: Total Cells Counted 100.0 (100)
[2025-05-01] MEDS ORDERED: HYDROcodone-ACET 5/325MG TAB ONE (11:11)
[2025-05-01] MEDS: HYDROcodone-ACET 5/325MG TAB PO PRN (11:41)
[2025-05-01] MEDS ORDERED: InsuLIN REG 1unit/0.01ml Soln (100units/ml) ONE ×3 (11:47→23:15)
[2025-05-01 13:00] VITALS: BP 149/81; PULSE 90; RESP 16; TEMP 97.3; O2SAT 98
--- NOTE | 2025-05-01 13:09 | DVHINCON2 ---
Date of service: May 01, 2025 Referring Physician Karan Steele NP Reason for Consultation Acute kidney injury History of Present Illness Mrs. Russell is a 61-year-old female with known history of hypertension, diabetes who presents for further evaluation and management of generalized weakness in the setting of hyperglycemia. She was found to have an elevated serum creatinine above baseline and that is the reason for this consultation. She was seen in the holding area earlier this morning. She was responsive but was challenged with remembering parts of the history. Most of the history was obtained through the chart. Serum creatinine during current admission was in the mid to high two range and has improved since admission. Baseline creatinine of one approximately two years ago. Past Medical History Diabetes Hypertension Dyslipidemia Allergies: Coded Allergies: Penicillins (Verified Allergy, Unknown, 01/03/17) Ibuprofen (Verified Adverse Reaction, Intermediate, VOMITING, 01/03/17) Current Medications Current Medications Medications (Trade) Dose Ordered Sig/Nathan Route PRN Reason Start Time Stop Time Status Last Admin Ceftriaxone Sodium 50 ml @ 100 mls/hr DAILY@2100 IV 05/01/25 21:00 Diagnostic Test (Pha) (Accu-Chek Comfort Curve T) 1 strip IQ4HR 05/01/25 04:00 05/01/25 13:02 DC 05/01/25 11:53 Insulin Human Regular (InsuLIN R) IQ4HR SC 05/01/25 04:00 05/01/25 13:02 DC 05/01/25 11:54 Dextrose 50 ml UD PRN IV Blood Sugar LESS THAN 60 05/01/25 02:00 Sodium Chloride (Saline Lock Ns) 10 ml Q8HR IV 05/01/25 06:00 05/01/25 06:05 Acetaminophen/ Hydrocodone Bitart ([place] 5/325MG Tab) 1 tab Q4HP PRN PO MODERATE PAIN (4-6 PAIN SCALE) 05/01/25 02:00 05/01/25 11:41 Ondansetron HCl (Zofran) 4 mg Q4HP PRN IV NAUSEA / VOMITING 05/01/25 02:00 Docusate Sodium (Colace Capsule) 100 mg BIDPRN PRN PO FOR CONSTIPATION 05/01/25 02:00 Acetaminophen (Tylenol Tablet) 650 mg Q6HP PRN PO PAIN SCALE 1-3 OR TEMP>100.4 05/01/25 02:00 Atorvastatin Calcium (Lipitor) 20 mg HS PO 05/01/25 22:00 Aspirin 81 mg DAILY PO 05/01/25 10:00 05/01/25 11:40 Clonidine HCl (Catapres Tablet) 0.1 mg Q4HP PRN PO SBP>150 05/01/25 02:00 Nitroglycerin (Ntrostat Sublingual) 0.4 mg Q5MINP PRN SL FOR CHEST PAIN 05/01/25 03:30 Morphine Sulfate 2 mg Q30M PRN IV FOR CHEST PAIN 05/01/25 03:30 Lorazepam (Ativan Tablet) 0.5 mg Q8HP PRN PO ANXIETY 05/01/25 04:30 05/01/25 04:26 Diagnostic Test (Pha) (Accu-Chek Comfort Curve T) 1 strip ACHS 05/01/25 17:00 UNV Insulin Human Regular (InsuLIN R) ACHS SC 05/01/25 17:00 UNV Insulin Glargine (Lantus) 10 units BID@0700,2200 SC 05/01/25 22:00 UNV Review of Systems Limited due to patient's inability to recall symptoms H&P Exam Vital Signs/I&O Vital Sign Date Time Temp Pulse Resp B/P (MAP) Pulse Ox O2 Delivery O2 Flow Rate FiO2 05/01/25 09:00 98.7 96 16 124/101 (109) 96 98.7 05/01/25 07:21 Nasal Cannula* 2 28 Intake and Output 04/30/25 05/01/25 18:59 06:59 Intake Total 1050 ml Balance 1050 ml Intake IV Total 1050 ml Physical Exam Gen: nad heent: nc/at, mmm lungs: cta anteriorly cvs: no rub abd: soft, bowel sounds audible ext: no edema neuro: alert and cooperative Labs/Diagnostic Data Labs/Diagnostic Data Laboratory Tests Test 05/01/25 11:22 05/01/25 09:57 05/01/25 08:17 04/30/25 23:29 Range/Units POC Glucose 194 H 131 H 70-106 mg/dl White Blood Count 8.3 4.4-10.8 10^3/uL Red Blood Count 4.44 4.0-5.20 10^6/uL Hemoglobin 13.1 12.2-16.2 g/dL Hematocrit 39.7 36.0-46.0 % Mean Corpuscular Volume 89.5 80.0-100.0 fL Mean Corpuscular Hemoglobin 29.6 28.0-32.0 pg Mean Corpuscular Hemoglobin Concent 33.1 32.0-36.0 g/dL Red Cell Distribution Width 15.7 H 11.8-14.3 % Platelet Count 288 140-450 10^3/uL Mean Platelet Volume 7.3 6.9-10.8 fL Neutrophils (%) (Auto) 37.0-80.0 % Lymphocytes (%) (Auto) 10.0-50.0 % Monocytes (%) (Auto) 0.0-12.0 % Eosinophils (%) (Auto) 0.0-7.0 % Basophils (%) (Auto) 0.0-2.0 % Neutrophils # (Auto) 1.6-8.6 10 ^3/uL Lymphocytes # (Auto) 0.4-5.4 10 ^3/uL Monocytes # (Auto) 0-1.3 10 ^3/uL Differential Total Cells Counted 100.0 100 Neutrophils % (Manual) 52 37.0-80.0 Band Neutrophils % (Manual) 2 Lymphocytes % (Manual) 25 10.0-50.0 Monocytes % (Manual) 8 0-12 Eosinophils % (Manual) 13 H 0-7 Basophils % (Manual) 0 0.0-2.0 Metamyelocytes % (manual) 0 Myelocytes % (Manual) 0 Promyelocytes % (Manual) 0 Blast Cells % (Manual) 0 Reactive Lymphocytes 0 Platelet Estimate Adequate Sodium Level 143 136-145 mmol/L Potassium Level 3.0 L 3.5-5.1 mmol/L Chloride Level 105 98-107 mmol/L Carbon Dioxide Level 26 20-31 mmol/L Anion Gap 12 5-15 Blood Urea Nitrogen 29 #H 9-23 mg/dL Creatinine 1.60 #H 0.550-1.02 mg/dL Glomerular Filtration Rate Calc 35 >90 mL/min BUN/Creatinine Ratio 18.1 10.0-20.0 Serum Glucose 158 H 74-106 mg/dL Calcium Level 8.9 8.7-10.4 mg/dL Total Bilirubin 0.5 0.2-1.0 mg/dL Aspartate Amino Transferase (AST) 40 13-40 U/L Alanine Aminotransferase (ALT) 23 7-40 U/L Alkaline Phosphatase 126 H 46-116 U/L Total Protein 6.8 5.7-8.2 g/dL Albumin 3.9 3.2-4.8 g/dL Troponin I High Sensitivity 7 </=34 ng/L Test 04/30/25 23:25 04/30/25 22:16 Range/Units Urine Color Light-orange Yellow Urine Clarity Ex.turbid Clear Urine pH 5.0 5.0-9.0 Urine Specific [place] 1.023 1.001-1.035 Urine Protein 1+ H Negative Urine Ketones Negative Negative Urine Blood 1+ H Negative /uL Urine Nitrite Negative Negative Urine Bilirubin 1+ H Negative Urine Urobilinogen 2 H Negative mg/dL Urine Leukocyte Esterase 3+ Negative /uL Urine RBC 10 0 - 4 /hpf Urine Microscopic WBC 18 H 0-5 /HPF Urine Squamous Epithelial Cells Mod <5 /hpf Urine Bacteria None seen None Seen /hpf Urine Mucus Few None Seen Urine Glucose 4+ H Normal mg/dL Urine Opiates Screen Neg NEGATIVE Urine Fentanyl Screen Neg NEGATIVE Urine Barbiturates Screen Neg NEGATIVE Urine Phencyclidine Screen Neg NEGATIVE Urine Amphetamines Screen Neg NEGATIVE Urine Benzodiazepines Screen Neg NEGATIVE Urine Cocaine Screen Neg NEGATIVE Urine Cannabinoids Screen Neg NEGATIVE White Blood Count 8.6 4.4-10.8 10^3/uL Red Blood Count 4.50 4.0-5.20 10^6/uL Hemoglobin 13.4 12.2-16.2 g/dL Hematocrit 40.4 36.0-46.0 % Mean Corpuscular Volume 89.7 80.0-100.0 fL Mean Corpuscular Hemoglobin 29.8 28.0-32.0 pg Mean Corpuscular Hemoglobin Concent 33.3 32.0-36.0 g/dL Red Cell Distribution Width 15.9 H 11.8-14.3 % Platelet Count 319 140-450 10^3/uL Mean Platelet Volume 7.4 6.9-10.8 fL Neutrophils (%) (Auto) 61.7 37.0-80.0 % Lymphocytes (%) (Auto) 25.7 10.0-50.0 % Monocytes (%) (Auto) 7.9 0.0-12.0 % Eosinophils (%) (Auto) 3.9 0.0-7.0 % Basophils (%) (Auto) 0.8 0.0-2.0 % Neutrophils # (Auto) 5.3 1.6-8.6 10 ^3/uL Lymphocytes # (Auto) 2.2 0.4-5.4 10 ^3/uL Monocytes # (Auto) 0.7 0-1.3 10 ^3/uL Eosinophils # (Auto) 0.3 0-0.8 10 ^3/uL Basophils # (Auto) 0.1 0-0.2 10 ^3/uL Nucleated Red Blood Cells 0.1 % Sodium Level 143 136-145 mmol/L Potassium Level 3.7 3.5-5.1 mmol/L Chloride Level 104 98-107 mmol/L Carbon Dioxide Level 23 20-31 mmol/L Anion Gap 16 H 5-15 Blood Urea Nitrogen 40 H 9-23 mg/dL Creatinine 2.93 H 0.550-1.02 mg/dL Glomerular Filtration Rate Calc 17 >90 mL/min BUN/Creatinine Ratio 13.7 10.0-20.0 Serum Glucose 282 H 74-106 mg/dL Lactic Acid Level 1.8 0.4-2.0 mmol/L Calcium Level 9.7 8.7-10.4 mg/dL Magnesium Level 2.0 1.6-2.6 mg/dL Total Bilirubin 0.3 0.2-1.0 mg/dL Aspartate Amino Transferase (AST) 41 H 13-40 U/L Alanine Aminotransferase (ALT) 22 7-40 U/L Alkaline Phosphatase 126 H 46-116 U/L Troponin I High Sensitivity 5 </=34 ng/L Total Protein 7.3 5.7-8.2 g/dL Albumin 4.2 3.2-4.8 g/dL Assessment IMP: 1) Hemodynamically mediated MIKEL/VMN, possible prerenal etiology 2) CKD stage IIIA 3) type 2 diabetes 4) hypertension 5) anemia REC: - we will check urine studies, serial chemistry panels - kidney function appears to be improving quickly with conservative means - we will recommend continued IV fluids, positive fluid balance as tolerated - discussed plan of care from Nephrology perspective with Danica. Thank you for the consultation. Plan discussed with: Patient ZULEIMA TORRES MD May 01, 2025 13:09
[2025-05-01] MEDS: SODIUM CHLORIDE 0.9% 1,000 ML IV ONE (14:26)
[2025-05-01] MEDS: POTASSIUM CHL 20 Meq TABLET PO ONE (15:54)
[2025-05-01] MEDS ORDERED: POTASSIUM CHL 20 Meq TABLET PO ONE (15:54)
[2025-05-01 17:00] VITALS: BP 150/85; PULSE 96; RESP 18; TEMP 97.1; O2SAT 99
[2025-05-01 18:55] VITALS: BP 154/83; PULSE 104; RESP 98; TEMP 99.5; O2SAT 98
[2025-05-01 20:00] VITALS: PULSE 92; PULSE 97; RESP 17; O2SAT 95
[2025-05-01 21:00] VITALS: BP 157/86; PULSE 97; RESP 19; TEMP 98; O2SAT 97
[2025-05-01] MEDS ORDERED: ATORVASTATIN 20 MG TAB ONE (22:33)
[2025-05-01] MEDS: ATORVASTATIN 20 MG TAB PO SCH (22:44)
[2025-05-01] MEDS ORDERED: INSULIN LANTUS (GLARGINE) 1 /0.01ml (100units/ml) SC ONE (23:07)
[2025-05-01] MEDS: INSULIN LANTUS (GLARGINE) 1 /0.01ml (100units/ml) SC SCH (23:15)
[2025-05-02] VITALS (8 sets, daily range): BP systolic 127–172; BP diastolic 70–105; PULSE 92–113; RESP 20; TEMP 36.7; O2SAT 94–97
[2025-05-02] MEDS ORDERED: HYDROcodone-ACET 5/325MG TAB ONE ×2 (00:49→07:01)
[2025-05-02] MEDS ORDERED: LORazepam 0.5 MG TAB ONE (01:03)
[2025-05-02 06:52] LABS: Hematocrit 38.2 % (36.0-46.0); Hemoglobin 12.6 g/dL (12.2-16.2); Mean Corpuscular Hemoglobin 29.8 pg (28.0-32.0); Mean Corpuscular Volume 90.4 fL (80.0-100.0); Nucleated Red Blood Cells % 0.1 %
[2025-05-02 07:04] LABS: Alanine Aminotransferase 24 U/L (7-40); Albumin 4.0 g/dL (3.2-4.8); Anion Gap 14 (5-15); BUN/Creatinine Ratio 18.9 (10.0-20.0); Blood Urea Nitrogen 17 mg/dL (9-23); Calcium 9.2 mg/dL (8.7-10.4); Carbon Dioxide 23 mmol/L (20-31); Chloride 104 mmol/L (98-107); Glucose 92 mg/dL (74-106); Magnesium 2.0 mg/dL (1.6-2.6); Potassium 3.8 mmol/L (3.5-5.1); Sodium 141 mmol/L (136-145); Total Protein 6.8 g/dL (5.7-8.2)
[2025-05-02 07:05] LABS: Bilirubin, Total 0.5 mg/dL (0.2-1.0)
[2025-05-02 07:06] LABS: Alkaline Phosphatase 127 U/L (46-116)
[2025-05-02] MEDS ORDERED: NITR-87 PO (11:33)
[2025-05-02] MEDS ORDERED: LOSA-533 PO (11:36)
--- NOTE | 2025-05-02 11:38 | DVHDS2 ---
Discharge Summary Date of Admission May 01, 2025 at 03:28 Date of Discharge: May 02, 2025 Labs/Diagnostic Data: Laboratory Results Test 05/02/25 06:01 05/02/25 05:31 05/01/25 09:57 04/30/25 23:29 White Blood Count 7.4 10^3/uL (4.4-10.8) Red Blood Count 4.23 10^6/uL (4.0-5.20) Hemoglobin 12.6 g/dL (12.2-16.2) Hematocrit 38.2 % (36.0-46.0) Mean Corpuscular Volume 90.4 fL (80.0-100.0) Mean Corpuscular Hemoglobin 29.8 pg (28.0-32.0) Mean Corpuscular Hemoglobin Concent 32.9 g/dL (32.0-36.0) Red Cell Distribution Width 15.5 % (11.8-14.3) Platelet Count 298 10^3/uL (140-450) Mean Platelet Volume 7.6 fL (6.9-10.8) Neutrophils (%) (Auto) 48.0 % (37.0-80.0) Lymphocytes (%) (Auto) 36.4 % (10.0-50.0) Monocytes (%) (Auto) 8.8 % (0.0-12.0) Eosinophils (%) (Auto) 6.3 % (0.0-7.0) Basophils (%) (Auto) 0.5 % (0.0-2.0) Neutrophils # (Auto) 3.6 10 ^3/uL (1.6-8.6) Lymphocytes # (Auto) 2.7 10 ^3/uL (0.4-5.4) Monocytes # (Auto) 0.7 10 ^3/uL (0-1.3) Eosinophils # (Auto) 0.5 10 ^3/uL (0-0.8) Basophils # (Auto) 0 10 ^3/uL (0-0.2) Nucleated Red Blood Cells 0.1 % POC Glucose 108 mg/dl (70-106) Sodium Level 141 mmol/L (136-145) Potassium Level 3.8 mmol/L (3.5-5.1) Chloride Level 104 mmol/L (98-107) Carbon Dioxide Level 23 mmol/L (20-31) Anion Gap 14 (5-15) Blood Urea Nitrogen 17 mg/dL (9-23) Creatinine 0.90 mg/dL (0.550-1.02) Glomerular Filtration Rate Calc 70 mL/min (>90) BUN/Creatinine Ratio 18.9 (10.0-20.0) Serum Glucose 92 mg/dL (74-106) Calcium Level 9.2 mg/dL (8.7-10.4) Magnesium Level 2.0 mg/dL (1.6-2.6) Total Bilirubin 0.5 mg/dL (0.2-1.0) Aspartate Amino Transferase (AST) 37 U/L (13-40) Alanine Aminotransferase (ALT) 24 U/L (7-40) Alkaline Phosphatase 127 U/L (46-116) Total Protein 6.8 g/dL (5.7-8.2) Albumin 4.0 g/dL (3.2-4.8) Differential Total Cells Counted 100.0 (100) Neutrophils % (Manual) 52 (37.0-80.0) Band Neutrophils % (Manual) 2 Lymphocytes % (Manual) 25 (10.0-50.0) Monocytes % (Manual) 8 (0-12) Eosinophils % (Manual) 13 (0-7) Basophils % (Manual) 0 (0.0-2.0) Metamyelocytes % (manual) 0 Myelocytes % (Manual) 0 Promyelocytes % (Manual) 0 Blast Cells % (Manual) 0 Reactive Lymphocytes 0 Platelet Estimate Adequate Troponin I High Sensitivity 7 ng/L (</=34) Test 04/30/25 23:25 04/30/25 22:16 Urine Color Light-orange (Yellow) Urine Clarity Ex.turbid (Clear) Urine pH 5.0 (5.0-9.0) Urine Specific [place] 1.023 (1.001-1.035) Urine Protein 1+ (Negative) Urine Ketones Negative (Negative) Urine Blood 1+ /uL (Negative) Urine Nitrite Negative (Negative) Urine Bilirubin 1+ (Negative) Urine Urobilinogen 2 mg/dL (Negative) Urine Leukocyte Esterase 3+ /uL (Negative) Urine RBC 10 /hpf (0 - 4) Urine Microscopic WBC 18 /HPF (0-5) Urine Squamous Epithelial Cells Mod /hpf (<5) Urine Bacteria None seen /hpf (None Seen) Urine Mucus Few (None Seen) Urine Glucose 4+ mg/dL (Normal) Urine Opiates Screen Neg (NEGATIVE) Urine Fentanyl Screen Neg (NEGATIVE) Urine Barbiturates Screen Neg (NEGATIVE) Urine Phencyclidine Screen Neg (NEGATIVE) Urine Amphetamines Screen Neg (NEGATIVE) Urine Benzodiazepines Screen Neg (NEGATIVE) Urine Cocaine Screen Neg (NEGATIVE) Urine Cannabinoids Screen Neg (NEGATIVE) Lactic Acid Level 1.8 mmol/L (0.4-2.0) Other Laboratory Tests 05/02/25 06:01 05/02/25 05:31 Brief Hx & Hospital Course: Final diagnoses: UTI Acute kidney injury due to vasomotor nephropathy Hemodynamically mediated MIKEL/VMN, 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 DM2 HTN 69-year-old female who was admitted for UTI and acute kidney injury and high blood pressure and high blood glucose She was given a bolus of 1 L normal saline which resolved her acute kidney injury and kidney function now is almost back to normal Blood glucose is 108 this morning She has a UTI which was treated with Rocephin The patient is stable for discharge on Macrobid for 5 days and losartan 25 mg daily Resume other home medications She says she takes insulin at home Follow up with her primary care physician as soon as possible Condition at Discharge: Stable Final Diagnosis/Problems List UTI Acute kidney injury due to vasomotor nephropathy Hemodynamically mediated MIKEL/VMN, 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 Patient was counseled about treatment plan, medications, possible side effects, patientverbalized understanding. All questions were answered to the best of my ability. This discharge took greater then 30 minutes in planning, reviewing documentation, counseling the patient, and discussing with other team members." ASSESSMENT ASSESSMENT Assessment Date of Service: May 02, 2025 Billing Provider: CHAS CHERY MD Common Visit Codes: NOT BILLABLE CHAS CHERY MD May 02, 2025 11:38
[2025-05-02] MEDS ORDERED: InsuLIN REG 1unit/0.01ml Soln (100units/ml) ONE (13:07)
--- NOTE | 2025-05-02 14:08 | DVHPN2 ---
Progress Note Date Seen: May 02, 2025 Medical Necessity Reason Pt with a Central, PICC or Fol: No Subjective Patient reports: No new complaints, Feels better Objective vital signs Vital Sign Date Time Temp Pulse Resp B/P (MAP) Pulse Ox O2 Delivery O2 Flow Rate FiO2 05/02/25 12:01 36.7 05/02/25 08:05 Nasal Cannula* 2 28 05/02/25 08:00 99 05/02/25 05:00 20 145/77 (99) 96 Total Intake and Output 05/01/25 05/01/25 05/02/25 15:00 23:00 07:00 Intake Total 600 ml 1000 ml Balance 600 ml 1000 ml medications Current Medications Medications Dose Ordered Sig/Nathan Route Start Time Stop Time Status Last Admin Dose Admin Ceftriaxone Sodium 50 ml @ 100 mls/hr DAILY@2100 IV 05/01/25 21:00 05/01/25 22:40 100 MLS/HR Dextrose 50 ml UD PRN IV 05/01/25 02:00 Sodium Chloride 10 ml Q8HR IV 05/01/25 06:00 05/02/25 06:02 10 ML Acetaminophen/ Hydrocodone Bitart 1 tab Q4HP PRN PO 05/01/25 02:00 05/02/25 07:03 1 TAB Ondansetron HCl 4 mg Q4HP PRN IV 05/01/25 02:00 Docusate Sodium 100 mg BIDPRN PRN PO 05/01/25 02:00 Acetaminophen 650 mg Q6HP PRN PO 05/01/25 02:00 Atorvastatin Calcium 20 mg HS PO 05/01/25 22:00 05/01/25 22:44 20 MG Aspirin 81 mg DAILY PO 05/01/25 10:00 05/02/25 09:50 81 MG Clonidine HCl 0.1 mg Q4HP PRN PO 05/01/25 02:00 05/01/25 22:45 0.1 MG Nitroglycerin 0.4 mg Q5MINP PRN SL 05/01/25 03:30 Morphine Sulfate 2 mg Q30M PRN IV 05/01/25 03:30 Lorazepam 0.5 mg Q8HP PRN PO 05/01/25 04:30 05/02/25 01:04 0.5 MG Diagnostic Test (Pha) 1 strip ACHS 05/01/25 17:00 05/02/25 11:44 1 STRIP Insulin Human Regular ACHS [place] 05/01/25 17:00 05/02/25 13:06 6 UNITS Insulin Glargine 10 units BID@0700,2200 [place] 05/01/25 22:00 05/01/25 23:15 10 UNITS Examination Gen: Appears stated age. NAD Lungs: Bilateral air entry Heart: RRR. normal S1 and S2 Ext: No edema Neuro: Alert and oriented x 4 laboratory and microbiology Laboratory Tests 05/02/25 06:01 05/02/25 05:31 Test 05/02/25 05:31 Range/Units Serum Glucose 92 74-106 mg/dL Microbiology Date/Time Source Procedure Growth Status 04/30/25 23:25 Voided Urine Urine Culture - Preliminary Resulted Labs and/or images reviewed: Labs reviewed by me Problem List/Assessment/Plan Problem List/Assessment/Plan IMP: 1) Hemodynamically mediated MIKEL/VMN, possible prerenal etiology 2) CKD stage IIIA 3) type 2 diabetes 4) hypertension 5) anemia REC: - Improved kidney function with an eGFR of 70 - Serial chemistry panels - Blood pressure control, glycemic control - Avoidance of NSAIDS and IV contrast studies if able during time course of MIKEL - Will continue to follow during hospital stay. Once discharged pt to follow as outpt in 2-3 weeks Plan discussed with: Patient HOWARD SCHRADER FADI May 02, 2025 14:08
== END 2025-05-02 17:45 | disposition home or self-care (01) | DRG 637 ==
LOC: ER 21:44 → EDBD 21:44 → OVERFLOW 05-01 03:28 → TELE-EAST 05-01 18:42 → TELE-CENTR 05-01 21:20
PROVIDERS: ADMIT Nurse Practitioner Family; ATTEND Nurse Practitioner Family
DX: E11.65 Type 2 diabetes mellitus with hyperglycemia (principal); N17.0 Acute kidney failure with tubular necrosis; D64.9 Anemia, unspecified; I12.9 Hypertensive chronic kidney disease with stage 1 through stage 4 chronic kidney disease, or unspecified chronic kidney disease; E11.22 Type 2 diabetes mellitus with diabetic chronic kidney disease; E78.5 Hyperlipidemia, unspecified; N39.0 Urinary tract infection, site not specified; N18.9 Chronic kidney disease, unspecified; R79.89 Other specified abnormal findings of blood chemistry; Z79.4 Long term (current) use of insulin; Z79.899 Other long term (current) drug therapy; Z88.0 Allergy status to penicillin; Z88.8 Allergy status to other drugs, medicaments and biological substances
CPT/HCPCS: 36415; 71045; 80053; 80307; 81001; 82962; 83605; 83735; 84484; 85007; 85025; 85027; 87086; 96360; 99291; G0378; J1815

== ENCOUNTER 2025-05-23 00:31 | Inpatient (IN) | payer OTHER ==
[~2025-05-23] VITALS: Ht 152.4 cm; Wt 63.0 kg
[~2025-05-23 00:31] MED LIST: LOSA-533 PO; NITR-87 PO
[2025-05-23 01:00] VITALS: PULSE 109; RESP 1; O2SAT 94
--- NOTE | 2025-05-23 01:00 | ED.PDOC ---
Altered Mental Status HPI Comments 70-year-old female who came to ER via EMS for altered level of consciousness. Per EMS patient picked up at home, has been having episodes of confusion before. She was last seen normal 3 hours ago by family members. However for the past hour, she has been unresponsive. Responsive only to deep sternal stimuli/pain. Narcan 1 mg given offered no improvement the patient status. Blood sugar and it was 110. Chief Complaint: ALOC Time Seen by MD: 01:00 Primary Care Provider: UNKNOWN Reviewed Notes: Group Work Program Director Notes Allergies: Coded Allergies: Gabapentin (Verified Allergy, Unknown, 05/02/25) pt's son states that pt couldn't take it, pt had reaction before Penicillins (Verified Allergy, Unknown, 01/03/17) Ibuprofen (Verified Adverse Reaction, Intermediate, VOMITING, 01/03/17) Home Meds Active Scripts Losartan Potassium (Losartan Potassium) 25 Mg Tab, 1 TAB PO DAILY, #30 TAB 5 Refills Prov:CHAS CHERY MD 05/02/25 Nitrofurantoin Monohydrate Mac (Macrobid) 100 Mg Cap, 100 MG PO BID for 5 Days, #10 CAP Prov:CHAS CHERY MD 05/02/25 Information Source: Emergency Med Personnel Mode of Arrival: EMS Severity: Unable to Care for Self, Unresponsive Past Medical History PAST MEDICAL HISTORY: DM, High Lipids, HTN Surgical History: Tubal Ligation Social History Smoker: Non-Smoker Alcohol: Occasionally Drugs: Denies Drug Use Lives In: Home Unable to Obtain due to: Altered Mental Status Physical Exam General Appearance: No Apparent Distress, Normal HEENT: Normal ENT Inspection, Pharynx Normal, TMs Normal Neck: Full Range of Motion, Non-Tender, Normal, Normal Inspection Respiratory: Chest Non-Tender, Lungs Clear, No Accessory Muscle Use, No Respiratory Distress, Normal Breath Sounds Cardiovascular: No Edema, No JVD, No Murmur, No Gallop, Normal Peripheral Pulses, Regular Rate/Rhythm Breast Exam: Deferred Gastrointestinal: No Organomegaly, Non Tender, No Pulsatile Mass, Normal Bowel Sounds, Soft Genitalia: Deferred Pelvic: Deferred Rectal: Deferred Extremities: No calf tenderness, Normal capillary refill, Normal inspection, Normal range of motion, Non-tender, No pedal edema Musculoskeletal : Apperance: Normal Neurologic: Alert, aeronautical engineer II-XII nml as Tested, No Motor Deficits, Normal Affect, Normal Mood, No Sensory Deficits Cerebellar Function: Normal Reflexes: Normal Skin: Dry, Normal Color, Warm Lymphatic: No Adenopathy Was a procedure done? Was a procedure done?: No Differential Diagnosis (ALOC) Differential Diagnosis: Encephalopathy, Seizure, CVA, Drug Overdose X-Ray, Labs, Meds, VS Vital Signs Date Time Temp Pulse Resp B/P (MAP) Pulse Ox O2 Delivery O2 Flow Rate FiO2 05/23/25 03:45 103 22 149/77 (101) 93 05/23/25 01:09 109 05/23/25 01:00 97.8 109 21 162/100 (120) 94 97.8 05/23/25 01:00 109 1 94 Room Air* 0 N/A Nasal Cannula* 05/23/25 00:35 97.8 104 24 164/95 93 97.8 Lab Test 05/23/25 03:10 05/23/25 02:22 05/23/25 01:35 05/23/25 01:15 Range/Units Lactic Acid Level 2.2 *H 2.6 *H 0.4-2.0 mmol/L Troponin I High Sensitivity 3 L 3 L </=34 ng/L Urine Color Light-yellow Yellow Urine Clarity Clear Clear Urine pH 7.0 5.0-9.0 Urine Specific [place] 1.014 1.001-1.035 Urine Protein Negative Negative Urine Ketones Negative Negative Urine Blood Negative Negative /uL Urine Nitrite Negative Negative Urine Bilirubin Negative Negative Urine Urobilinogen Normal Negative mg/dL Urine Leukocyte Esterase Negative Negative /uL Urine RBC 1 0 - 4 /hpf Urine Microscopic WBC < 1 0-5 /HPF Urine Squamous Epithelial Cells Few <5 /hpf Urine Bacteria None seen None Seen /hpf Urine Glucose 4+ H Normal mg/dL Urine Opiates Screen Neg NEGATIVE Urine Fentanyl Screen Neg NEGATIVE Urine Barbiturates Screen Neg NEGATIVE Urine Phencyclidine Screen Neg NEGATIVE Urine Amphetamines Screen Neg NEGATIVE Urine Benzodiazepines Screen Neg NEGATIVE Urine Cocaine Screen Neg NEGATIVE Urine Cannabinoids Screen Neg NEGATIVE White Blood Count 8.2 4.4-10.8 10^3/uL Red Blood Count 4.82 4.0-5.20 10^6/uL Hemoglobin 13.9 12.2-16.2 g/dL Hematocrit 43.3 36.0-46.0 % Mean Corpuscular Volume 89.9 80.0-100.0 fL Mean Corpuscular Hemoglobin 28.8 28.0-32.0 pg Mean Corpuscular Hemoglobin Concent 32.0 32.0-36.0 g/dL Red Cell Distribution Width 15.4 H 11.8-14.3 % Platelet Count 344 140-450 10^3/uL Mean Platelet Volume 7.2 6.9-10.8 fL Neutrophils (%) (Auto) 79.2 37.0-80.0 % Lymphocytes (%) (Auto) 13.9 10.0-50.0 % Monocytes (%) (Auto) 5.3 0.0-12.0 % Eosinophils (%) (Auto) 1.3 0.0-7.0 % Basophils (%) (Auto) 0.3 0.0-2.0 % Neutrophils # (Auto) 6.5 1.6-8.6 10 ^3/uL Lymphocytes # (Auto) 1.1 0.4-5.4 10 ^3/uL Monocytes # (Auto) 0.4 0-1.3 10 ^3/uL Eosinophils # (Auto) 0.1 0-0.8 10 ^3/uL Basophils # (Auto) 0 0-0.2 10 ^3/uL Nucleated Red Blood Cells 0.0 % Sodium Level 143 136-145 mmol/L Potassium Level 4.5 3.5-5.1 mmol/L Chloride Level 103 98-107 mmol/L Carbon Dioxide Level 29 20-31 mmol/L Anion Gap 11 5-15 Blood Urea Nitrogen 16 9-23 mg/dL Creatinine 0.71 0.550-1.02 mg/dL Glomerular Filtration Rate Calc 92 >90 mL/min BUN/Creatinine Ratio 22.5 H 10.0-20.0 Serum Glucose 45 *L 74-106 mg/dL Calcium Level 9.9 8.7-10.4 mg/dL Magnesium Level 2.1 1.6-2.6 mg/dL Total Bilirubin 0.2 0.2-1.0 mg/dL Aspartate Amino Transferase (AST) 28 13-40 U/L Alanine Aminotransferase (ALT) 23 7-40 U/L Alkaline Phosphatase 116 46-116 U/L Total Protein 7.2 5.7-8.2 g/dL Albumin 4.5 3.2-4.8 g/dL Plasma/Serum Blood Alcohol < 3.0 <10 mg/dL Current Medications Medications (Trade) Dose Ordered Sig/Nathan Route Start Time Stop Time Status Last Admin Dextrose 50 ml ONCE ONCE IV 05/23/25 01:15 05/23/25 01:16 DC 05/23/25 01:33 Sodium Chloride 1,350 ml @ 1,350 mls/hr ONCE ONCE IV 05/23/25 02:15 05/23/25 03:14 DC 05/23/25 02:51 Ceftriaxone Sodium 50 ml @ 100 mls/hr ONCE ONCE IV 05/23/25 02:15 05/23/25 02:44 DC 05/23/25 02:51 Time of 1ST Reevaluation: 00:56 Reevaluation 1ST: Unchanged Patient Education/Counseling: Diagnosis, Treatment, Pt Unresponsive (to verbal stimuli) Family Education/Counseling: No Family Present SEPSIS Sepsis Screen Physician Orders Chest Portable (05/23/25 00:45) Head Without Contrast (05/23/25 00:45) Assistant Store Manager Trainee (05/23/25 00:45) Blood Culture (05/23/25 00:45) Electrocardigram (05/23/25 00:45) Straight Cath Patient (05/23/25 00:45) Vital Signs Date Time Temp Pulse Resp B/P (MAP) Pulse Ox O2 Delivery O2 Flow Rate FiO2 05/23/25 03:45 103 22 149/77 (101) 93 05/23/25 01:09 109 05/23/25 01:00 97.8 109 21 162/100 (120) 94 97.8 05/23/25 01:00 109 1 94 Room Air* 0 N/A Nasal Cannula* 05/23/25 00:35 97.8 104 24 164/95 93 97.8 Laboratory Tests Test 05/23/25 01:15 05/23/25 03:10 Lactic Acid Level 2.6 mmol/L (0.4-2.0) *H 2.2 mmol/L (0.4-2.0) *H White Blood Count 8.2 10^3/uL (4.4-10.8) Medications Medications Dose Ordered Sig/Nathan Route Start Time Stop Time Status Last Admin Dose Admin Ceftriaxone Sodium 50 ml @ 100 mls/hr ONCE ONCE IV 05/23/25 02:15 05/23/25 02:44 DC 05/23/25 02:51 Dextrose 50 ml ONCE ONCE IV 05/23/25 01:15 05/23/25 01:16 DC 05/23/25 01:33 Sodium Chloride 1,350 ml @ 1,350 mls/hr ONCE ONCE IV 05/23/25 02:15 05/23/25 03:14 DC 05/23/25 02:51 Departure 1 Departure Time of Disposition: 04:12 Impression: Primary Impression: Type 2 diabetes mellitus with hypoglycemia Additional Impression: Metabolic encephalopathy Disposition: ADMITTED INPATIENT Admit to: Med Surg Condition: Guarded Comments 70 yo female with h/o type 2 DM now with hypoglycemia and altered mental status, no improvement after narcan. Blood glucose improved after dextrose but remains confused and very somnolent. will need admission for supportive care and further workup Critical Care Note Critical Care Time?: No Stability Stability form required: No Heart Score Heart Score: Heart Score Response (Comments) Value History N/A 0 EKG N/A 0 Age N/A 0 Risk Factors N/A 0 Troponin N/A 0 Total 0 I personally scribed for ROXY BEVERLY MD ([email or web address]) on 05/23/25 at 01:00. Electronically submitted by Rodney Covington ([email or web address]). ROXY BEVERLY MD May 23, 2025 01:00
[2025-05-23] MEDS: DEXTROSE (50%) 50ML SYRG IV ONE ×2 (01:33→01:35)
[2025-05-23] MEDS: DEXTROSE 50% SYRINGE 50 ML IV ONE (01:34)
[2025-05-23 01:50] LABS: Hematocrit 43.3 % (36.0-46.0); Hemoglobin 13.9 g/dL (12.2-16.2); Mean Corpuscular Hemoglobin 28.8 pg (28.0-32.0); Mean Corpuscular Volume 89.9 fL (80.0-100.0); Nucleated Red Blood Cells % 0.0 %
[2025-05-23 01:53] LABS: Urine Protein, UAD Negative (Negative)
[2025-05-23 02:04] LABS: Opiate Scree,Urine Neg (NEGATIVE)
[2025-05-23 02:06] LABS: Alanine Aminotransferase 23 U/L (7-40); Albumin 4.5 g/dL (3.2-4.8); Alkaline Phosphatase 116 U/L (46-116); Anion Gap 11 (5-15); BUN/Creatinine Ratio 22.5 (10.0-20.0); Blood Urea Nitrogen 16 mg/dL (9-23); Calcium 9.9 mg/dL (8.7-10.4); Carbon Dioxide 29 mmol/L (20-31); Chloride 103 mmol/L (98-107); Magnesium 2.1 mg/dL (1.6-2.6); Potassium 4.5 mmol/L (3.5-5.1); Sodium 143 mmol/L (136-145); Total Protein 7.2 g/dL (5.7-8.2)
[2025-05-23 02:09] LABS: Amphetamine Screen, Urine Neg (NEGATIVE); Barbiturate Scree,Urine Neg (NEGATIVE); Benzodiazephine Screen, Urine Neg (NEGATIVE); Cannabinoid Screen, Urine Neg (NEGATIVE); Cocaine Screen, Urine Neg (NEGATIVE); Phencyclidine Screen, Urine Neg (NEGATIVE)
[2025-05-23 02:09] LABS: Bilirubin, Total 0.2 mg/dL (0.2-1.0); Glucose 45 mg/dL (74-106); Lactic Acid w/Reflex 2.6 mmol/L (0.4-2.0)
[2025-05-23] MEDS: SODIUM CHLORIDE 0.9% 1,350 ML IV ONE (02:51)
[2025-05-23] MEDS ORDERED: ACETAMINOPHEN 325 MG TAB PO PRN (04:30)
[2025-05-23] MEDS ORDERED: DOCUSATE SOD 100 MG CAP PO PRN (04:30)
[2025-05-23] MEDS ORDERED: ONDANSETRON HCL 4 MG/2 ML VIAL IV PRN (04:30)
[2025-05-23] MEDS ORDERED: HYDROcodone-ACET 5/325MG TAB PO PRN (04:30)
[2025-05-23] MEDS ORDERED: NITROGLYCERIN 0.4 MG SL TAB SL PRN (04:30)
[2025-05-23] MEDS ORDERED: MORPHINE SULFATE INJ 2 MG/ml SYRG IV PRN (04:30)
[2025-05-23] MEDS ORDERED: DEXTROSE (50%) 50ML SYRG IV PRN (04:30)
--- NOTE | 2025-05-23 04:38 | DVHHP2 ---
History of Present Illness Reason for Visit: Altered mental status History of Present Illness The patient is a 70-year-old female with past medical history of diabetes mellitus, hypertension, and hyperlipidemia who presented to [facility] ED for evaluation of altered level of consciousness. As reported by EMS, patient was picked up at home due to episodes increased confusion state. Patient was initially responsive only to deep sternal stimuli/pain and was given Narcan 1 mg with minimal improvement, EN route to our facility ED. Patient was seen and evaluated in the ED, laboratory data shows WBC 8.2, platelets 344, sodium 143, potassium 4.5, BUN 16, creatinine 0.71, GFR 92, glucose 45, calcium 9.9, lactic acid 2.6 trending down to 2.2, troponin 3, blood pressure 149/77, heart rate 102, temperature 97.8 F, O2 saturation 93% on oxygen. Head CT results pending, please see medication orders section in the computer. On my assessment, patient patient is a alert oriented x4, denied chest pain, no headache, dizziness, diaphoresis, shortness of breaths, no diarrhea, nausea, vomiting, fever, no chills. Patient was admitted for further evaluation and medical management. Past Medical History DM, High Lipids, HTN Past Surgical History Tubal Ligation Family History Reviewed, noncontributory to the management of this case. Past Social History The patient lives at home, denies smoking, alcohol or illicit drugs abuse. Review of Systems Constitutional: Yes: Weakness; No: Fever, Chills, Sweats, Malaise, Other Eyes: No: Pain, Vision change, Conjunctivae inflammation, Eyelid inflammation, Other, Redness ENT: No: Ear pain, Ear discharge, Nose pain, Nose discharge, Nose congestion, Mouth pain, Mouth swelling, Throat pain, Throat swelling, Other Respiratory: No: Cough, Dry, Shortness of breath, SOB with excertion, Wheezing, Hemoptysis, Pleuritic Pain, Sputum, Wheezing, Other Cardiovascular: No: Chest Pain, Palpitations, Orthopnea, Paroxysmal Noc. Dyspnea, Edema, Lt Headedness, Other Gastrointestinal: No: Nausea, Vomiting, Abdominal Pain, Diarrhea, Constipation, Melena, Hematochezia, Other Genitourinary: No Dysuria, No Frequency, No Incontinence, No Hematuria, No Retention, No Other Musculoskeletal: No: other, neck pain, shoulder pain, arm pain, back pain, hand pain, leg pain, foot pain Skin: No: Rash, Lesions, Jaundice, Bruising, Other Neurological: Other (Altered level of consciousness); No: Weakness, Numbness, Incoordination, Change in speech, Confusion, Seizures Allergies: Coded Allergies: Gabapentin (Verified Allergy, Unknown, 05/02/25) pt's son states that pt couldn't take it, pt had reaction before Penicillins (Verified Allergy, Unknown, 01/03/17) Ibuprofen (Verified Adverse Reaction, Intermediate, VOMITING, 01/03/17) Exam Vital Signs Vital Signs Date Time Temp Pulse Resp B/P (MAP) Pulse Ox O2 Delivery O2 Flow Rate FiO2 05/23/25 03:45 103 22 149/77 (101) 93 05/23/25 01:00 97.8 97.8 05/23/25 01:00 Room Air* 0 N/A Nasal Cannula* General Appearance: Alert, Oriented X3, Cooperative, No acute distress, Other HEENT: Atraumatic, PERRLA, EOMI, Mucous membr. moist/pink Respiratory: Normal air movement Cardiovascular: Regular rate, Normal S1, Normal S2, No murmurs Abdominal: Normal bowel sounds, Soft, No tenderness, No hepatospenomegaly, No masses Extremities: No clubbing, No cyanosis, No edema, Normal pulses, No tenderness/swelling Skin: No rashes, No significant lesion Neuro: Normal speech, Normal tone, Sensation intact, Cranial nerves 3-12 NL, Reflexes 2+, Other (Generalized weakness) Psych/Mental Status: Mental status NL, Mood NL Labs/Xrays Labs Test 05/23/25 03:10 05/23/25 02:22 05/23/25 01:35 05/23/25 01:15 Range/Units Lactic Acid Level 2.2 *H 0.4-2.0 mmol/L Troponin I High Sensitivity 3 L </=34 ng/L Urine Color Light-yellow Yellow Urine Clarity Clear Clear Urine pH 7.0 5.0-9.0 Urine Specific [place] 1.014 1.001-1.035 Urine Protein Negative Negative Urine Ketones Negative Negative Urine Blood Negative Negative /uL Urine Nitrite Negative Negative Urine Bilirubin Negative Negative Urine Urobilinogen Normal Negative mg/dL Urine Leukocyte Esterase Negative Negative /uL Urine RBC 1 0 - 4 /hpf Urine Microscopic WBC < 1 0-5 /HPF Urine Squamous Epithelial Cells Few <5 /hpf Urine Bacteria None seen None Seen /hpf Urine Glucose 4+ H Normal mg/dL Urine Opiates Screen Neg NEGATIVE Urine Fentanyl Screen Neg NEGATIVE Urine Barbiturates Screen Neg NEGATIVE Urine Phencyclidine Screen Neg NEGATIVE Urine Amphetamines Screen Neg NEGATIVE Urine Benzodiazepines Screen Neg NEGATIVE Urine Cocaine Screen Neg NEGATIVE Urine Cannabinoids Screen Neg NEGATIVE White Blood Count 8.2 4.4-10.8 10^3/uL Red Blood Count 4.82 4.0-5.20 10^6/uL Hemoglobin 13.9 12.2-16.2 g/dL Hematocrit 43.3 36.0-46.0 % Mean Corpuscular Volume 89.9 80.0-100.0 fL Mean Corpuscular Hemoglobin 28.8 28.0-32.0 pg Mean Corpuscular Hemoglobin Concent 32.0 32.0-36.0 g/dL Red Cell Distribution Width 15.4 H 11.8-14.3 % Platelet Count 344 140-450 10^3/uL Mean Platelet Volume 7.2 6.9-10.8 fL Neutrophils (%) (Auto) 79.2 37.0-80.0 % Lymphocytes (%) (Auto) 13.9 10.0-50.0 % Monocytes (%) (Auto) 5.3 0.0-12.0 % Eosinophils (%) (Auto) 1.3 0.0-7.0 % Basophils (%) (Auto) 0.3 0.0-2.0 % Neutrophils # (Auto) 6.5 1.6-8.6 10 ^3/uL Lymphocytes # (Auto) 1.1 0.4-5.4 10 ^3/uL Monocytes # (Auto) 0.4 0-1.3 10 ^3/uL Eosinophils # (Auto) 0.1 0-0.8 10 ^3/uL Basophils # (Auto) 0 0-0.2 10 ^3/uL Nucleated Red Blood Cells 0.0 % Sodium Level 143 136-145 mmol/L Potassium Level 4.5 3.5-5.1 mmol/L Chloride Level 103 98-107 mmol/L Carbon Dioxide Level 29 20-31 mmol/L Anion Gap 11 5-15 Blood Urea Nitrogen 16 9-23 mg/dL Creatinine 0.71 0.550-1.02 mg/dL Glomerular Filtration Rate Calc 92 >90 mL/min BUN/Creatinine Ratio 22.5 H 10.0-20.0 Serum Glucose 45 *L 74-106 mg/dL Calcium Level 9.9 8.7-10.4 mg/dL Magnesium Level 2.1 1.6-2.6 mg/dL Total Bilirubin 0.2 0.2-1.0 mg/dL Aspartate Amino Transferase (AST) 28 13-40 U/L Alanine Aminotransferase (ALT) 23 7-40 U/L Alkaline Phosphatase 116 46-116 U/L Total Protein 7.2 5.7-8.2 g/dL Albumin 4.5 3.2-4.8 g/dL Plasma/Serum Blood Alcohol < 3.0 <10 mg/dL SEPSIS Sepsis Screen Date sepsis recognized/suspect: May 23, 2025 Time Sepsis recognized/suspect: 99 Recent Procedure: No On Antibiotic Therapy: No Respiratory Rate >20: No Heart Rate >90: No Temp<36 C (96.8 F) or >38.3 C: No SBP <90 or MAP <65 mmHG: No New Acute Mental Status Change: No Is the patient on CPAP, BIPAP,: No Physician Orders Chest Portable (05/23/25 00:45) Head Without Contrast (05/23/25 00:45) Electrical Sign Servicer (05/23/25 00:45) Blood Culture (05/23/25 00:45) Electrocardigram (05/23/25 00:45) Straight Cath Patient (05/23/25 00:45) Complete Blood Count (05/23/25 04:18) Comprehensive Metabolic Panel (05/23/25 04:18) Consistent Carb(Ccho)Diabetes (05/23/25 Breakfast) D5w/Sod Chl 0.45% 1/2 Ns (05/23/25 04:30) Lactated Ringer's (05/23/25 04:30) Admit (05/23/25 04:18) Allergies (05/23/25 04:18) Code Status (05/23/25 04:18) Oxygen Per Hour (05/23/25 04:18) Hydrocodone-Acet 5/325mg Tab ([place] 5/32 (05/23/25 04:30) Ondansetron Hcl (Zofran) (05/23/25 04:30) Docusate Sodium Capsule (Colace Capsule) (05/23/25 04:30) Fall Risk Precautions In Place QSHIFT (05/23/25 04:18) Complete Blood Count (05/24/25 04:00) Comprehensive Metabolic Panel (05/24/25 04:00) Condition: Serious (05/23/25 04:18) Acetaminophen Tablet (Tylenol Tablet) (05/23/25 04:30) Maintain Bed Rest (05/23/25 04:18) Sequential Compression Device (05/23/25 ) Glucose Blood (Accu-Chek Comfort Curve T (05/23/25 08:00) Mild Sliding Scale (05/23/25 08:00) Dextrose 50% Syringe (05/23/25 04:30) Nitroglycerin Sublingual (Ntrostat Subli (05/23/25 04:30) Morphine Sulfate Injection (05/23/25 04:30) Stat Ekg For Chest Pain (05/23/25 04:18) Notify Md Of Changes From Base (05/23/25 04:18) Infection Control Coordinator For 24 Hours (05/23/25 04:18) Emergency Dysrhythmia Protocol (05/23/25 04:18) Rhythm Strips Once Every Shift (05/23/25 04:18) Oxygen By Nasal Cannula (05/23/25 04:18) Vital Signs Date Time Temp Pulse Resp B/P (MAP) Pulse Ox O2 Delivery O2 Flow Rate FiO2 05/23/25 03:45 103 22 149/77 (101) 93 05/23/25 01:09 109 05/23/25 01:00 97.8 109 21 162/100 (120) 94 97.8 05/23/25 01:00 109 1 94 Room Air* 0 N/A Nasal Cannula* 05/23/25 00:35 97.8 104 24 164/95 93 97.8 Laboratory Tests Test 05/23/25 01:15 05/23/25 03:10 Lactic Acid Level 2.6 mmol/L (0.4-2.0) *H 2.2 mmol/L (0.4-2.0) *H White Blood Count 8.2 10^3/uL (4.4-10.8) Medications Medications Dose Ordered Sig/Nathan Route Start Time Stop Time Status Last Admin Dose Admin Ceftriaxone Sodium 50 ml @ 100 mls/hr ONCE ONCE IV 05/23/25 02:15 05/23/25 02:44 DC 05/23/25 02:51 100 MLS/HR Dextrose 50 ml ONCE ONCE IV 05/23/25 01:15 05/23/25 01:16 DC 05/23/25 01:33 50 ML Sodium Chloride 1,350 ml @ 1,350 mls/hr ONCE ONCE IV 05/23/25 02:15 05/23/25 03:14 DC 05/23/25 02:51 1,350 MLS/HR Assessment/Plan Assessment/Plan Altered mental status Elevated lactic acid level Type 2 diabetes mellitus with hypoglycemia Generalized weakness Plan 1. Admit to telemetry unit 2. Breathing treatment 3. Pain control management 4. Management of fluids and electrolytes 5. Consultation for hospitalist 6. Diagnostic tests head CT 7. DVT prophylaxis-on SCDs 8. Repeat labs CBC, CMP in a.m. 9. Continue with current medical management 10. Treatment plan discussed with patient and RN. Patient verbalized understanding. Plan discussed with: Patient, Other (RN) My Orders Orders - BEBO CANDELARIO DNP Procedure Category Date Status Time Complete Blood Count LAB 05/23/25 Transmitted 04:18 Comprehensive LAB 05/23/25 Transmitted Metabolic Panel 04:18 Consistent DIET 05/23/25 Transmitted Carb(Ccho)Diabetes Breakfast D5w/Sod Chl 0.45% 1/2 PHA 05/23/25 Transmitted NS 04:30 Lactated Ringer's PHA 05/23/25 Transmitted 04:30 Admit ADMIT 05/23/25 Transmitted 04:18 Allergies ROBB 05/23/25 Transmitted 04:18 Code Status CODE 05/23/25 Transmitted 04:18 Oxygen Per Hour RT 05/23/25 Transmitted 04:18 Hydrocodone-Acet PHA 05/23/25 Transmitted 5/325mg Tab ([place] 04:30 Ondansetron Hcl PHA 05/23/25 Transmitted (Zofran) 04:30 Docusate Sodium PHA 05/23/25 Transmitted Capsule (Colace 04:30 Fall Risk Precautions ROBB 05/23/[address] 04:18 Complete Blood Count LAB 05/24/25 Verified 04:00 Comprehensive LAB 05/24/25 Verified Metabolic Panel 04:00 Condition: Serious ROBB 05/23/25 Transmitted 04:18 Acetaminophen Tablet PHA 05/23/25 Transmitted (Tylenol Tablet) 04:30 Maintain Bed Rest [facility] 05/23/25 Transmitted 04:18 Sequential [facility] 05/23/25 Transmitted Compression Device Glucose Blood [facility] 05/23/25 Transmitted (Accu-Chek Comfort 08:00 Mild Sliding Scale [facility] 05/23/25 Transmitted 08:00 Dextrose 50% Syringe [facility] 05/23/25 Transmitted 04:30 Nitroglycerin [facility] 05/23/25 Transmitted Sublingual (Ntrostat 04:30 Morphine Sulfate [facility] 05/23/25 Transmitted Injection 04:30 Stat Ekg For Chest [facility] 05/23/25 Transmitted Pain 04:18 Notify Md Of Changes [facility] 05/23/25 Transmitted From Base 04:18 Infection Control Coordinator For [facility] 05/23/25 Transmitted 24 Hours 04:18 Emergency Dysrhythmia [facility] 05/23/25 Transmitted Protocol 04:18 Rhythm Strips Once [facility] 05/23/25 Transmitted Every Shift 04:18 Oxygen By Nasal 05/23/25 Transmitted Cannula 04:18 Problem List: (1) Altered mental status (2) Elevated lactic acid level (3) Type 2 diabetes mellitus with hypoglycemia (4) General weakness Date of Service: May 23, 2025 Billing Provider: BEBO CANDELARIO DNP Common Visit Codes: [id number] INP/OBS CARE (HIGH) BEBO CANDELARIO DNP May 23, 2025 04:38
[2025-05-23] MEDS ORDERED: MORPHINE SULFATE 4 MG/ML SYR/VIAL IV PRN (05:00)
[2025-05-23 05:31] LABS: Hematocrit 39.7 % (36.0-46.0); Hemoglobin 12.8 g/dL (12.2-16.2); Mean Corpuscular Hemoglobin 29.1 pg (28.0-32.0); Mean Corpuscular Volume 90.1 fL (80.0-100.0); Nucleated Red Blood Cells % 0.1 %
[2025-05-23] MEDS: LACTATED RINGER'S 500 ML IV ONE (05:46)
[2025-05-23 05:47] LABS: Alanine Aminotransferase 15 U/L (7-40); Albumin 3.8 g/dL (3.2-4.8); Alkaline Phosphatase 100 U/L (46-116); Anion Gap 10 (5-15); BUN/Creatinine Ratio 15.7 (10.0-20.0); Bilirubin, Total 0.3 mg/dL (0.2-1.0); Blood Urea Nitrogen 11 mg/dL (9-23); Calcium 9.0 mg/dL (8.7-10.4); Carbon Dioxide 27 mmol/L (20-31); Potassium 4.0 mmol/L (3.5-5.1); Total Protein 6.6 g/dL (5.7-8.2)
[2025-05-23 05:54] LABS: Chloride 109 mmol/L (98-107); Glucose 115 mg/dL (74-106); Sodium 146 mmol/L (136-145)
--- NOTE | 2025-05-23 06:11 | DVH ---
INDICATION: SOB TECHNIQUE: Frontal view of the chest. COMPARISON: XY CHEST PORTABLE on DOS: 04/30/25, XR CHEST 1 VIEW on DOS: 03/15/25, XR CHEST 1 VIEW on DOS: 03/14/25 FINDINGS: . The heart and mediastinal contours are grossly unremarkable. There is no evidence of pleural disease. The lungs are clear. The bony structures of the chest are intact without fracture. IMPRESSION: 1. No evidence of acute disease.
[2025-05-23] MEDS: D5W/SOD CHL 0.45% 1,000 ML IV SCH (06:13)
--- NOTE | 2025-05-23 06:15 | DVH ---
EXAM: CT HEAD WITHOUT CONTRAST INDICATION: ALOC TECHNIQUE: CT of the head without intravenous contrast. Radiation Dose Information: CT Dose: CTDI volume is 25 mGy. Dose-length product is 250 mGy*cm The dose indicators for CT are the volume Computed Tomography (CT) Dose Index (CTDIvol) and the Dose Length Product (DLP), and are measured in units of mGy and mGy-cm, respectively. These indicators are not patient dose, but values generated from the CT scanner acquisition factors. The report includes radiation exposure data for exposures received during this examination. COMPARISON: None FINDINGS: There is no evidence of acute intracranial hemorrhage, extra-axial collection, mass effect, midline shift, herniation or hydrocephalus. The ventricles, sulci and cisterns are age appropriate. The sharma-white differentiation is intact. Patchy periventricular and subcortical white matter hypoattenuation is nonspecific but may be related to small vessel ischemic disease. The visualized paranasal sinuses and mastoid air cells are clear. The surrounding soft tissues and osseous structures are unremarkable. IMPRESSION: No acute intracranial abnormality.
[2025-05-23] MEDS: ACCU-CHEK COMFORT CURVE STRIP VI SCH (07:22)
[2025-05-23] MEDS: InsuLIN REG 1unit/0.01ml Soln (100units/ml) SC SCH (07:22)
[2025-05-23] MEDS: hydrALAZINE HCL 20 MG/ML VL IV PRN (08:27)
[2025-05-23 11:50] VITALS: BP 176/92; PULSE 105; RESP 15; TEMP 98.5; O2SAT 95
[2025-05-23 12:00] VITALS: PULSE 106
[2025-05-23] MEDS ORDERED: METO25TA36 PO (12:52)
--- NOTE | 2025-05-23 12:57 | DVHDS2 ---
Discharge Summary Date of Admission May 23, 2025 at 04:18 Date of Discharge: May 23, 2025 Labs/Diagnostic Data: Laboratory Results Test 05/23/25 12:26 05/23/25 05:05 05/23/25 03:10 05/23/25 02:22 POC Glucose 223 mg/dl (70-106) White Blood Count 7.0 10^3/uL (4.4-10.8) Red Blood Count 4.41 10^6/uL (4.0-5.20) Hemoglobin 12.8 g/dL (12.2-16.2) Hematocrit 39.7 % (36.0-46.0) Mean Corpuscular Volume 90.1 fL (80.0-100.0) Mean Corpuscular Hemoglobin 29.1 pg (28.0-32.0) Mean Corpuscular Hemoglobin Concent 32.2 g/dL (32.0-36.0) Red Cell Distribution Width 15.2 % (11.8-14.3) Platelet Count 322 10^3/uL (140-450) Mean Platelet Volume 7.3 fL (6.9-10.8) Neutrophils (%) (Auto) 65.0 % (37.0-80.0) Lymphocytes (%) (Auto) 27.2 % (10.0-50.0) Monocytes (%) (Auto) 6.0 % (0.0-12.0) Eosinophils (%) (Auto) 1.3 % (0.0-7.0) Basophils (%) (Auto) 0.5 % (0.0-2.0) Neutrophils # (Auto) 4.5 10 ^3/uL (1.6-8.6) Lymphocytes # (Auto) 1.9 10 ^3/uL (0.4-5.4) Monocytes # (Auto) 0.4 10 ^3/uL (0-1.3) Eosinophils # (Auto) 0.1 10 ^3/uL (0-0.8) Basophils # (Auto) 0 10 ^3/uL (0-0.2) Nucleated Red Blood Cells 0.1 % Sodium Level 146 mmol/L (136-145) Potassium Level 4.0 mmol/L (3.5-5.1) Chloride Level 109 mmol/L (98-107) Carbon Dioxide Level 27 mmol/L (20-31) Anion Gap 10 (5-15) Blood Urea Nitrogen 11 mg/dL (9-23) Creatinine 0.70 mg/dL (0.550-1.02) Glomerular Filtration Rate Calc 94 mL/min (>90) BUN/Creatinine Ratio 15.7 (10.0-20.0) Serum Glucose 115 mg/dL (74-106) Calcium Level 9.0 mg/dL (8.7-10.4) Total Bilirubin 0.3 mg/dL (0.2-1.0) Aspartate Amino Transferase (AST) 22 U/L (13-40) Alanine Aminotransferase (ALT) 15 U/L (7-40) Alkaline Phosphatase 100 U/L (46-116) Total Protein 6.6 g/dL (5.7-8.2) Albumin 3.8 g/dL (3.2-4.8) Lactic Acid Level 2.2 mmol/L (0.4-2.0) Troponin I High Sensitivity 3 ng/L (</=34) Test 05/23/25 01:35 05/23/25 01:15 Urine Color Light-yellow (Yellow) Urine Clarity Clear (Clear) Urine pH 7.0 (5.0-9.0) Urine Specific [place] 1.014 (1.001-1.035) Urine Protein Negative (Negative) Urine Ketones Negative (Negative) Urine Blood Negative /uL (Negative) Urine Nitrite Negative (Negative) Urine Bilirubin Negative (Negative) Urine Urobilinogen Normal mg/dL (Negative) Urine Leukocyte Esterase Negative /uL (Negative) Urine RBC 1 /hpf (0 - 4) Urine Microscopic WBC < 1 /HPF (0-5) Urine Squamous Epithelial Cells Few /hpf (<5) Urine Bacteria None seen /hpf (None Seen) Urine Glucose 4+ mg/dL (Normal) Urine Opiates Screen Neg (NEGATIVE) Urine Fentanyl Screen Neg (NEGATIVE) Urine Barbiturates Screen Neg (NEGATIVE) Urine Phencyclidine Screen Neg (NEGATIVE) Urine Amphetamines Screen Neg (NEGATIVE) Urine Benzodiazepines Screen Neg (NEGATIVE) Urine Cocaine Screen Neg (NEGATIVE) Urine Cannabinoids Screen Neg (NEGATIVE) Magnesium Level 2.1 mg/dL (1.6-2.6) Plasma/Serum Blood Alcohol < 3.0 mg/dL (<10) Other Laboratory Tests 05/23/25 05:05 Brief Hx & Hospital Course: Final diagnoses: Acute metabolic encephalopathy due to hypoglycemia Hypoglycemia Type 2 diabetes, insulin-dependent Uncontrolled hypertension 70-year-old female admitted for altered level of consciousness due to hypoglycemia Blood pressure is slightly elevated She is slightly tachycardic Blood glucose was 45 She is better now and she is completely back to her normal and therefore she can be discharged home She said she was taking insulin 50 units twice a day She was instructed to cut down the dose to 25 twice a day Continue losartan 25 mg daily Add Toprol-XL 25 mg daily Follow up with her primary care physician as soon as possible Condition at Discharge: Stable Final Diagnosis/Problems List Metabolic encephalopathy due to hypoglycemia Hypoglycemia Uncontrolled hypertension Discharge Disposition: Home SNF Discharge Will this Physician continue t: No Discharge Instruct/Medications Diet: Consistent carbohydrate, Cardiac 2g Na,low cholest Activity: No Restrictions, As Tolerated Follow Up/Referral: PCP as soon as possible Medications: Continue losartan 25 mg daily at home Add Toprol-XL 25 mg daily Decrease the insulin dose to half: 25 units twice a day Scheduled Losartan Potassium (Losartan Potassium), 1 TAB PO DAILY Metoprolol Succinate (Toprol Xl), 1 TAB PO DAILY Nitrofurantoin Monohydrate Mac (Macrobid), 100 MG PO BID Discharge Statement: "Patient was advised to return to the ER or call 911 if any headaches, dizziness, shortness of breath, chest pain, abdominal pain, bleeding, fevers, or worsening of medical condition. Patient was counseled about treatment plan, medications, possible side effects, patientverbalized understanding. All questions were answered to the best of my ability. This discharge took greater then 30 minutes in planning, reviewing documentation, counseling the patient, and discussing with other team members." ASSESSMENT ASSESSMENT Assessment Metabolic encephalopathy due to hypoglycemia Hypoglycemia Uncontrolled hypertension Date of Service: May 23, 2025 Billing Provider: CHAS CHERY MD Common Visit Codes: NOT BILLABLE CHAS CHERY MD May 23, 2025 12:57
--- NOTE | 2025-05-24 09:35 | ECG ---
[facility] Test Date: 2025-05-23 Test Time: 01:09:04 Pat Name: UZMA CAMPOS Department: [facility] ED Room: [address] [place] [address] Gender: F [employer] Teacher: JACKELINE : [id number] Requested By: ROXY BEVERLY Order Number: [id number] Reading MD: Measurements Intervals [place] Rate: 109 P: 58 NE: 151 QRS: 1 QRSD: 81 T: -8 QT: 363 QTc: 489 Interpretive Statements Sinus tachycardia Right atrial enlargement LVH by voltage Borderline prolonged QT interval Please click the below link to view image of tracing.
== END 2025-05-23 13:10 | disposition home or self-care (01) | DRG 637 ==
LOC: ER 00:31 → EDBD 00:31 → OVERFLOW 04:18
PROVIDERS: ADMIT Nurse Practitioner Family; ATTEND Nurse Practitioner Family
DX: E11.649 Type 2 diabetes mellitus with hypoglycemia without coma (principal); G93.41 Metabolic encephalopathy; I10 Essential (primary) hypertension; E78.5 Hyperlipidemia, unspecified; Z79.4 Long term (current) use of insulin; Z79.899 Other long term (current) drug therapy; Z88.0 Allergy status to penicillin
CPT/HCPCS: 36415; 70450; 71045; 80053; 80307; 80320; 81001; 82962; 83605; 83735; 84484; 85025; 87040; 93005; G0378; J1815